=== PATIENT | female | born 1940 | race Caucasian/White ===

== ENCOUNTER → 2017-07-31 | Outpatient (CLI) | payer OTHER ==
[~2017-07-31] MED LIST: ALBU18002 INH; ATEN-175 PO; ATRINS NEB; ATV/2 PO; CYCL10TA6 PO; HYDR12.55 PO; LEVO50TA6 PO; LUTE15CA PO; NAPR-1169 PO; ONDA4TAB46 PO; POTASSIUM PO; RANI150T85 PO; TRAM-10 PO; flovent PO
--- NOTE | 2017-07-31 13:37 | Discharge Instructions ---
Discharge Instructions Procedure Procedure Date: Jul 31, 2017. Reason for visit: Matty Mamm/Repeat Us; Left/Core's Vs Stereo. Discharge Discharge Date: Jul 31, 2017. Discharge Diagnosis: status post breast biopsy Instructions Activity Recommendations: Additional Limitations (see below) Return to School/Work: no limitations Recommended Home Diet: No Limitations Provider Instructions: ACTIVITY RECOMMENDATIONS: * No lifting, pushing, pulling or exercising the affected side for three days. RETURN TO SCHOOL/WORK: * You may return to work/school after the procedure, but do not perform any strenuous activities for 24 to 48 hours. MEDICATIONS: * Tylenol (two 325 mg) every four to six hours if needed for mild pain (if not allergic to Tylenol). DIET: * Resume previous diet. SPECIAL CARE INSTRUCTIONS: * Keep biopsy site dry for 24 hours. May shower after 24 hours, but do not soak (bathe) incision. * May remove Tegaderm (plastic patch) tomorrow AFTER showering. * Leave the steri-strips on for one week. Allow the steri-strips to fall off by themselves. If not off after one week, you may remove them. You may place a Bandaid crosswise over the strips, if desired. * Apply ice 10 minutes on and 10 minutes off as needed. * Wear a bra at bedtime to sleep more comfortably for 2-3 days. * Your referring physician should have the results after approximately 5 to 7 business days. * Call for unusual bleeding, fever, drainage, etc or if you have any questions call during normal business hours or after hours call Dr Fam, . FOLLOW UP VISIT: Follow-up with Referring Physician as scheduled. Allergies Coded Allergies: Adhesives (Verified Allergy, Unknown, SKIN IRRIATION WITH SOME TAPE, 03/04) NO KNOWN DRUG ALLERGIES (Verified Allergy, Unknown, NONE, 03/04/17) Shellfish (Verified Allergy, Unknown, ABDOMINAL PAIN, 03/04/17) Jere Benitez Recommendations: Call your doctor if: * Temperature above 101 degrees * Pain not relieved by pain medicine ordered * There is increased drainage or redness from any incision * You have any unanswered questions or concerns. Your Doctors Instructions noted above were prepared by provider Emerald Fam. Patient Signature Section: Patient Instructions Signature Page Ginna Sandy Patient (or Guardian) Signature/Date: I have read and understand the instructions given to me by my caregivers. Caregiver/RN/Doctor Signature/Date: The above-named patient and/or guardian has received patient instructions on this date. + Original Patient Signature Page (only) stays with chart. Please make copy for patient.
--- NOTE | 2017-08-01 07:47 | MAMMOGRAPHY REPORT ---
ULTRASOUND GUIDED BIOPSY LEFT BREAST: 07/31/2017 CLINICAL HISTORY: Left 6:00 subareolar breast mass. PATIENT CONSENT: The procedure, risks and benefits were discussed with the patient and informed writt en consent was obtained. A timeout was performed immediately prior to the procedure. PROCEDURE DESCRIPTION: With ultrasound guidance, aseptic technique, and lidocaine as the local anesth etic (1% lidocaine to anesthetize the skin and 1% lidocaine with epinephrine to anesthetize the deepe r tissues), the mass of concern in the left 6:00 anterior subareolar breast (mass "A") was sampled 4 times with a 14-gauge Achieve biopsy needle. Immediately thereafter, with ultrasound guidance, asept ic technique, and lidocaine as the local anesthetic, a metallic localizer wing-shaped clip was placed centrally in the mass. Immediately thereafter, with ultrasound guidance, aseptic technique, and lidocaine as the local anest hetic (1% lidocaine to anesthetize the skin and 1% lidocaine with epinephrine to anesthetize the deep er tissues), the prominent ducts and associated calcifications and the left 6:00 breast, 2-3 cm from the nipple (labelled "B") were sampled approximately 8 times with a 14-gauge Achieve biopsy needle. Immediately thereafter, with ultrasound guidance, aseptic technique, and lidocaine as the local anest hetic, a metallic localizer clip was placed at the biopsy site. A specimen radiograph was performed of the samples, which shows at least one calcification to be present within the samples. Direct pressure was applied to the site immediately post procedure and hemostasis was achieved. Post procedure unilateral mammograms were performed to confirm clip placement. The patient tolerated the procedures without complication. She was given wound care instructions. The specimens were sent to p athology for analysis. COMPARISON: Comparison is made to exams dated: 07/11/2017 mammogram - [facility] and 018 mammogram - [facility]. 1. Ultrasound-guided core needle biopsy of the palpable mass in the left 6:00 anterior subareolar br east (mass "A"), with clip placement. 2. Ultrasound-guided core needle biopsy of prominent ducts and associated calcifications in the left 6:00 breast, 2-3 cm from the nipple (labeled site "B"), with clip placement. The patient will receive pathology results from her referring provider. IMPRESSION: ULTRASOUND GUIDED BIOPSY 1. Ultrasound-guided core needle biopsy of the palpable mass in the left 6:00 anterior subareolar br east (mass "A"), with clip placement. 2. Ultrasound-guided core needle biopsy of prominent ducts and associated calcifications in the left 6:00 breast, 2-3 cm from the nipple (labeled site "B"), with clip placement. The patient will receive pathology results from her referring provider. Emerald Fam M.D. ah/:07/31/2017 14:00:26 Appian Developer: Emelyn AMARAL)(Peter), [facility]
--- NOTE | 2017-08-01 07:47 | MAMMOGRAPHY REPORT ---
ULTRASOUND GUIDED BIOPSY LEFT BREAST: 07/31/2017 CLINICAL HISTORY: Palpable mass in the left 6:00 anterior subareolar breast as well as prominent duct s and associated calcifications seen more posteriorly. PATIENT CONSENT: The procedure, risks and benefits were discussed with the patient and informed writt en consent was obtained. A timeout was performed immediately prior to the procedure. PROCEDURE DESCRIPTION: With ultrasound guidance, aseptic technique, and lidocaine as the local anesth etic (1% lidocaine to anesthetize the skin and 1% lidocaine with epinephrine to anesthetize the deepe r tissues), the mass of concern in the left 6:00 anterior subareolar breast (mass "A") was sampled 4 times with a 14-gauge Achieve biopsy needle. Immediately thereafter, with ultrasound guidance, asept ic technique, and lidocaine as the local anesthetic, a metallic localizer clip was placed centrally i n the mass. Immediately thereafter, with ultrasound guidance, aseptic technique, and lidocaine as the local anest hetic (1% lidocaine to anesthetize the skin and 1% lidocaine with epinephrine to anesthetize the deep er tissues), the prominent ducts and associated calcifications and the left 6:00 breast, 2-3 cm from the nipple (labelled "B") were sampled approximately 8 times with a 14-gauge Achieve biopsy needle. Immediately thereafter, with ultrasound guidance, aseptic technique, and lidocaine as the local anest hetic, a metallic localizer clip was placed at the biopsy site. A specimen radiograph was performed of the samples, which shows at least one calcification to be present within the samples. Direct pressure was applied to the site immediately post procedure and hemostasis was achieved. Post procedure unilateral mammograms were performed to confirm clip placement. The patient tolerated the procedures without complication. She was given wound care instructions. The specimens were sent to p athology for analysis. COMPARISON: Comparison is made to exams dated: 07/11/2017 mammogram - [facility] and 018 mammogram - [facility]. IMPRESSION: ULTRASOUND GUIDED BIOPSY 1. Ultrasound-guided core needle biopsy of the palpable mass in the left 6:00 anterior subareolar br east (mass "A"), with clip placement. 2. Ultrasound-guided core needle biopsy of prominent ducts and associated calcifications in the left 6:00 breast, 2-3 cm from the nipple (labeled site "B"), with clip placement. The patient will receive pathology results from her referring provider. Emerald Fam M.D. ah/:07/31/2017 14:01:16 Media Production Manager: Emelyn AMARAL)(Peter), [facility]
--- NOTE | 2017-08-01 07:52 | MAMMOGRAPHY REPORT ---
BILATERAL DIGITAL DIAGNOSTIC MAMMOGRAM TOMOSYNTHESIS AND TARGETED LEFT ULTRASOUND: 07/31/2017 CLINICAL HISTORY: The patient reports a palpable lump in her left breast for approximately 1 month. She had an evaluation at an outside institution and a biopsy was recommended. TECHNIQUE: Breast tomosynthesis in addition to standard 2D mammography was performed. Bilateral CC and MLO tomosynthesis images including C views were obtained. COMPARISON: Comparison is made to exam dated: 07/11/2017 mammogram - [facility]. Also tasha or outside mammograms dated 09/10/2013, 05/02/2011, 04/20/2010. BREAST COMPOSITION: There are scattered areas of fibroglandular density in both breasts. FINDINGS: Bilateral CC and MLO tomosynthesis were obtained as the prior 2018 outside bilateral mammog shahzad were of 2D images only. There is a non-circumscribed irregular 15 x 8 mm mass within the left a nterior inferior subareolar breast. Posterior to this is an ill-defined focal asymmetry and associat ed pleomorphic calcifications extending in a ductal distribution, with total extent of the abnormalit y measuring approximately 10.3 x 3.8 cm. The remainder of the left breast as well as right breast de monstrate no suspicious masses, calcifications, or areas of architectural distortion. A biopsy clip is again noted within the left upper outer breast from prior benign biopsy. Targeted ultrasound was performed of the palpable left breast lump pointed out by the patient. In th e left breast at 6:00 subareolar region, there is an irregular hypoechoic solid non-circumscribed mas s which measures 1.3 x 1.0 x 1.0 cm. This corresponds with the anterior mammographic mass and is hig hly suspicious for malignancy. Ultrasound-guided biopsy is recommended for further evaluation. Post erior and slightly inferior to the mass, in the left breast at approximately 6:00, 2-3 cm from the ni pple, there are prominent ducts with a few echogenic foci seen within the ducts which correspond with the pleomorphic calcifications seen mammographically. 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 Targeted ultrasound was also performed of the left axilla. There are a few left axillary lymph nodes which have normal echogenic fatty alexia and the cortical thicknesses are within normal limits. The m ost prominent lymph node in the lower left axilla has a cortical thickness of 2.7 mm which is at the upper limits of normal, however, this lymph node appears stable mammographically compared to prior ex ams including the 2011 exam. No clear adenopathy is evident. Postprocedural left CC and ML tomosynthesis images were obtained after the biopsies. A new wing-shap ed biopsy marker clip is seen within the biopsied mass in the left anterior 6:00 subareolar breast. A ribbon-shaped biopsy marker clip is seen more posteriorly in the left central breast at the site of the biopsy of prominent ducts and associated calcifications. The 2 clips are located approximately 3.8 cm apart. No significant postbiopsy hematoma is seen. IMPRESSION: ACR BI-RADS CATEGORY 5: HIGHLY SUGGESTIVE OF MALIGNANCY, TARGETED ULTRASOUND ACR BI-RADS CATEGORY 5: HIGHLY SUGGESTIVE OF MALIGNANCY 1. Palpable hypoechoic 1.3 cm mass in the left 6:00 subareolar breast, as well as a focal asymmetry and associated pleomorphic calcifications seen extending posterior to the mass. The total extent of the abnormality measures up to 10.3 cm. Findings are highly suspicious and ultrasound-guided core ne edle biopsy 2 is recommended, of the palpable mass as well as prominent ducts and associated calcifi cations more posteriorly. 2. No mammographic evidence of malignancy in the right breast on the tomosynthesis images. 3. No clear evidence of left axillary adenopathy. 4. Postprocedural mammograms show two new biopsy marker clips status post ultrasound-guided biopsy 2 of the left breast. The results were reviewed with the patient. The biopsies were performed immediately after the exam. Approximately 10% of breast cancers are not detected with mammography. A negative mammographic report should not delay biopsy if a clinically suggestive mass is present. Emerald Fam M.D. /:07/31/2017 14:03:47 Care Clinician: Emelyn AMARAL)(Peter), [facility] BI-RADS Code: ACR BI-RADS Category 5: Highly Suggestive Of Malignancy Ultrasound BI-RADS: ACR BI-RAD S Category 5: Highly Suggestive Of Malignancy
== END | disposition home or self-care (01) ==
LOC: C.MAMM 12:17
PROVIDERS: ATTEND Family Medicine
DX: N63.20 Unspecified lump in the left breast, unspecified quadrant (principal); C50.912 Malignant neoplasm of unspecified site of left female breast; R92.0 Mammographic microcalcification found on diagnostic imaging of breast

== ENCOUNTER 2019-03-28 20:10 | Inpatient (IN) ==
[2019-03-28] MEDS ORDERED: NITROGLYCERIN SL 0.4 MG/TAB TAB SL PRN (21:21)
[2019-03-28] MEDS ORDERED: ACETAMINOPHEN 325 MG TAB PO PRN (21:21)
--- NOTE | 2019-03-28 21:46 | XRay Report ---
SINGLE VIEW CHEST CLINICAL HISTORY: Atrial fibrillation. FINDINGS: An AP, portable, upright chest radiograph is compared to study dated 02/18/2017. The examin ation is degraded by portable technique and apical lordotic positioning. The heart is enlarged noting atherosclerotic calcification of the thoracic aorta. The pulmonary vasculature is noncongested. 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 An accessory azygous fissure is incidentally note d. No airspace consolidation or pleural effusion is identified. No pneumothorax is seen. The skeletal structures are osteopenic. The bony thorax is grossly intact. A compression deformity with vertebrop lasty change is noted in the lower thoracic spinal. The carotid bulbs are densely calcified. IMPRESSION: Cardiomegaly with no acute cardiopulmonary abnormality. Electronically signed by: Tonny Hawkins M.D. 03/28/2019 9:45 PM
[2019-03-28] MEDS ORDERED: METOPROLOL TARTRATE 25 MG TAB PO STA (22:01)
[2019-03-28] MEDS ORDERED: NICOTINE POLACRILEX 2 MG GUM MT PRN (22:02)
[2019-03-28] MEDS ORDERED: TAMSULOSIN HCL 0.4 MG CAP PO ONE (22:07)
[2019-03-28] MEDS ORDERED: SODIUM CHLORIDE 0.9% 500 ML IV ONE (22:09)
[2019-03-28] MEDS ORDERED: Heparin IV Low Dose *NO* Bolus IV STA (22:10)
[2019-03-28] MEDS ORDERED: LORazepam 1 MG TAB PO PRN (22:10)
[2019-03-28] MEDS ORDERED: OXYCODONE HCL IR 5 MG TAB (IMMEDIATE RELEASE) PO PRN (22:11)
[2019-03-28] MEDS ORDERED: HYDROmorphone INJ 0.5 MG/0.5 ML SYR IV PRN (22:11)
--- NOTE | 2019-03-28 22:17 | History & Physical Report ---
Date of Service March 28, 2019 Assessment & Plan (1) Atrial fibrillation with rapid ventricular response: New onset Likely secondary to discomfort from obstructive uropathy No sepsis for now hypertension, currently stable breast cancer left status post surgery radiation on hormonal Rx Seroma not a new finding as per patient. Patient follows with [facility] Hyponatremia secondary to clinical dehydration, poor p.o. intake uterine cancer status post surgery chronic thrombocytopenia Hypothyroidism, euthyroid as of recent TSH hyperglycemia ro DM ongoing tobacco abuse PCU Switch patient's Atenolol to Lopressor to allow for higher dosing to achieve rate control IV heparin for thromboembolic prophylaxis TTE, Cardiology consult new onset A. fib IVF, careful correction of sodium, hyponatremia work-up Flomax trial Urology consult Re: Obstructive uropathy check hemoglobin A1c Nicotine gum as needed DVT prophylaxis. IV heparin Full code History of Present Illness Chief Complaint: Left kidney stone Primary Care Provider: Carson Aguilar MD History obtained from patient and records. Medical history significant for hypertension, breast cancer left status post surgery radiation, uterine cancer status post surgery, hypothyroidism, chronic thrombocytopenia, ongoing tobacco abuse. Recent confinement February 2017 under Orthopedics service for elective kyphoplasty for T12 compression fracture. 5 days history of fatigue symptoms, poor appetite, left-sided abdominal discomfort. No chest pain, no S OB. Patient brought to [facility] this afternoon. Noted to be in rapid A. fib, cardiac rate 140s. SBP 90s RR 24 Patient given IV Lopressor at the ER. CT abdomen pelvis showed 6 mm proximal left ureteral calculus causing moderate left hydronephrosis Incidental finding of 5.5 cm collection left breast favoring seroma. Consider abscess in the right clinical setting. 03/28 [place] [facility] labwork as follows : Hemoglobin 13.9 hematocrit 40 WBC 8 platelets 96 sodium 128 potassium 4.4 chloride 91 CO2 22 BUN 17 creatinine 1.2 glucose 108 UA WBC esterase positive, nitrite negative. Patient given IV Ceftriaxone at the ER. Patient transferred to [facility] for urologic services. 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 Allergies Allergy/AdvReac Type Severity Reaction Status Date / Time adhesive Allergy Unknown SKIN Verified 03/04/17 09:58 IRRIATION WITH SOME TAPE No Known Drug Allergies Allergy Unknown NONE Verified 03/04/17 09:58 shellfish derived Allergy Unknown ABDOMINAL Verified 03/04/17 09:58 PAIN Home Medications Home Medications Medication Instructions Recorded Confirmed Type Potassium Tab 99 mg PO DAILY 03/28/19 03/28/19 History albuterol sulfate [ProAir HFA] 2 puff INHALATION Q4 PRN 03/28/19 03/28/19 History anastrozole [Arimidex] 1 mg PO DAILY 03/28/19 03/28/19 History atenolol [Tenormin] 100 mg PO DAILY 03/28/19 03/28/19 History benzonatate [Tessalon Perles] 200 mg PO TID PRN 03/28/19 03/28/19 History bupropion HCl (smoking deter) 150 mg PO BID 03/28/19 03/28/19 History fluticasone furoate [Arnuity 1 inh INHALATION DAILY 03/28/19 03/28/19 History Ellipta] ipratropium-albuterol 3 ml INHALATION Q6 PRN 03/28/19 03/28/19 History levothyroxine 50 mcg PO DAILY 03/28/19 03/28/19 History lorazepam [Ativan] 1 mg PO BID PRN 03/28/19 03/28/19 History naproxen [Naprosyn] 500 mg PO Q12 PRN 03/28/19 03/28/19 History ranitidine HCl [Zantac] 150 mg PO BID 03/28/19 03/28/19 History Past Med/Surg History Medical History Acute UTI Breast cancer, left Cancer, uterine Cataract of both eyes Left ureteral stone Surgical History History of hysterectomy for cancer Previous back surgery Social History Preferred Language: Kazakh Communication Ability: Effective 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: No Beliefs That Will Affect Care: None Current Living Situation: Alone Current Living Situation Comment: house Other Information That Helps Us Care for You: No Feels Safe at Home: Yes Safety Concerns: Feels Safe At This Time Smoking Status: Current every day smoker Tobacco Type: cigarettes ; Cigarettes Per Day: 1/2 pack-10 cigaretts per day ; Do You Dip or Chew Tobacco: No ; Second Hand Exposure: No ; Tobacco Cessation Education Requested by Patient: No Hx Alcohol Use: Yes Alcohol type: other Hx Substance Use: No Review of Systems Review of Systems: As per HPI, all 10 systems reviewed, all other ROS negative Physical Exam Physical Exam: GENERAL: Slightly uncomfortable, lying on the right lateral decubitus position, no respiratory distress, obese SKIN: Normal color, warm HEENT: [place] palpebral conjunctivae, no ptosis, dry buccal mucosa NECK : Supple, no tenderness CHEST : Decreased breath sounds , no tenderness HEART : Tachycardic, irregular , no obvious murmurs ABDOMEN: Some distention, nontender EXTREMITIES : No LE swelling/tenderness, no other conspicuous deformities noted NEUROLOGIC : Coherent, no facial asymmetry, no other gross focality Results & Data Vital Signs (Past 12 Hours) Vital Signs Temp Pulse Resp BP Pulse Ox Pulse Ox 03/28/19 21:22 37.1 C 110 H 20 131/84 95 95 Laboratory Results [facility] lab results as per HPI Diagnostic Findings Chest x-ray : Cardiomegaly with no acute cardiopulmonary abnormality. EKG as per my interpretation : Rate 130, A. fib, LAD, LAFB, no ischemia CT abdomen pelvis as per HPI Code Status & VTE Plan VTE Prophylaxis Plan VTE Prophylaxis will be ordered: Yes
[2019-03-28 23:12] LABS: BUN Creatinine Ratio 15.8 (10-20); Calcium 8.7 mg/dl (8.5-10.1); Creatinine Clr Calc Pharmacy 32.9 ml/min; Est GFR (African American) 43.9; Est GFR (Non-African American) 37.9; Magnesium 1.6 mg/dl (1.8-2.4); Potassium 3.6 mmol/L (3.5-5.1)
[2019-03-28 23:22] LABS: Thyroid Stimulating Hormone 1.41 uIu/ml (0.300-4.500); Troponin I 0.031 ng/ml (0-0.045)
[2019-03-28] MEDS ORDERED: POTASSIUM CHLORIDE 20 MEQ TABCR PO STA (23:27)
[2019-03-28] MEDS ORDERED: ACETAMINOPHEN 325 MG TAB PO STA (23:27)
[2019-03-28] MEDS ORDERED: CEFEPIME 2,000 MG/20 ML VIAL IV STA (23:34)
[2019-03-28] MEDS ORDERED: LACTATED RINGER'S 1,000 ML IV SCH (23:45)
[2019-03-28] MEDS ORDERED: CEFEPIME CONSULT ACTIVE PRN (23:47)
[2019-03-28 23:49] LABS: Partial Thromboplastin Ratio 1.2; Partial Thromboplastin Time 32.8 Seconds (21.0-31.0)
--- NOTE | 2019-03-28 23:52 | Hospitalist Progress Note ---
Date of Service March 28, 2019 Subjective Patient noted to be febrile and tachycardic in a.m. UA WBC esterase, nitrite positive AP Sepsis secondary to complicated UTI Cultures, check lactic acid IV Cefepime for now (hx Pseudomonas UTI as per outpatient records) N.p.o. sips after midnight in anticipation of urgent urologic procedure. Results & Data Vital Signs (Past 12 Hours) Vital Signs Temp Pulse Resp BP BP Pulse Ox Pulse Ox 03/28/19 23:06 37.8 C H 115 H 16 137/83 96 03/28/19 21:22 37.1 C 110 H 20 131/84 95 95
[2019-03-28] MEDS: HEPARIN SODIUM/DEXTROSE 25,000 UNITS/500 ML BAG IV SCH (23:54)
[2019-03-29] MEDS ORDERED: LACTATED RINGER'S 1,000 ML IV ONE
[2019-03-29] MEDS: MAGNESIUM SULFATE / D5W 1 GM/100 ML BAG IV SCH ×2 (00:04→01:07)
[2019-03-29] MEDS: CEFEPIME 2,000 MG in SYRINGE 7.5 ML IV SCH ×2 (00:05→22:18)
[2019-03-29 01:37] LABS: Appearance Urine Turbid (Clear); Bacteria Urine Automated Negative (Negative); Blood Urine 3+ (Negative); Color Urine Dark Yellow; Epithelial Cell Urine Auto 20-30 /lpf (0-5); Glucose Urine UA Negative (Negative); Ketones Urine Negative (Negative); Leukocyte Esterase Urine 2+ (Negative); Nitrite Urine Positive (Negative); Protein Urine 2+ (Negative); Specific Gravity Urine 1.019 (1.000-1.030); Urobilinogen Urine Negative (Negative); WBC Urine Automated >30 /hpf (0-5)
[2019-03-29 01:40] LABS: Bilirubin Urine Negative (Negative); Ictotest Urine Negative (Negative)
[2019-03-29 01:51] LABS: RBC Urine Automated 0-4 /hpf (0-4)
[2019-03-29 02:48] LABS: BUN Creatinine Ratio 16.7 (10-20); Calcium 8.3 mg/dl (8.5-10.1); Creatinine Clr Calc Pharmacy 35.3 ml/min; Est GFR (African American) 47.7; Est GFR (Non-African American) 41.2; Magnesium 2.6 mg/dl (1.8-2.4)
[2019-03-29] MEDS: NSS + 20MEQ KCL 20 MEQ/1,000 ML BAG IV SCH ×2 (04:12→22:18)
[2019-03-29] MEDS ORDERED: SODIUM CHLORIDE 0.9% 500 ML IV ONE ×2 (05:08→07:13)
[2019-03-29] MEDS ORDERED: METOPROLOL TARTRATE 1 MG/ML VIAL IV STA (05:08)
[2019-03-29] MEDS ORDERED: ACETAMINOPHEN 325 MG TAB PO STA (05:08)
[2019-03-29] MEDS: LEVOTHYROXINE SODIUM 50 MCG TABLET PO SCH (05:15)
[2019-03-29] MEDS ORDERED: NSS + 20MEQ KCL 20 MEQ/1,000 ML BAG IV SCH (06:00)
[2019-03-29] MEDS: PROMETHAZINE HCL 12.5 MG in SODIUM CHLORIDE 0.9% 50 ML IV PRN (06:34)
[2019-03-29 06:44] LABS: Partial Thromboplastin Ratio 1.5; Partial Thromboplastin Time 39.3 Seconds (21.0-31.0)
[2019-03-29] MEDS ORDERED: HEPARIN IV BOLUS 4,000 UNITS in SYRINGE 0 ML IV ONE (07:30)
[2019-03-29] MEDS ORDERED: DIGOXIN 250 MCG in SYRINGE 9 ML IV ONE (08:00)
[2019-03-29] MEDS ORDERED: INFLUENZA VACCINE HIGH DOSE 65+ 0.5 ML SYR IM ONE (08:00)
[2019-03-29] MEDS ORDERED: INFLUENZA ADMINISTRATION CHARGE ONE (08:00)
--- NOTE | 2019-03-29 08:28 | Anesthesiology Consultation ---
Date of Service March 29, 2019 Assessment & Plan (1) Encounter for pre-operative examination: ASA ASA3 Proposed Anesthesia Anesthesia Type: MAC History Height/Weight Height: 5 ft 2 in Weight: 77.4 kg Allergies Allergy/AdvReac Type Severity Reaction Status Date / Time adhesive Allergy Unknown SKIN Verified 03/04/17 09:58 IRRIATION WITH SOME TAPE No Known Drug Allergies Allergy Unknown NONE Verified 03/04/17 09:58 shellfish derived Allergy Unknown ABDOMINAL Verified 03/04/17 09:58 PAIN Medications Home Medications Medication Instructions Recorded Confirmed Last Taken Potassium Tab 99 mg PO DAILY 03/28/19 03/28/19 Unknown albuterol sulfate [ProAir HFA] 2 puff INHALATION Q4 PRN 03/28/19 03/28/19 Unknown anastrozole [Arimidex] 1 mg PO DAILY 03/28/19 03/28/19 Unknown atenolol [Tenormin] 100 mg PO DAILY 03/28/19 03/28/19 Unknown benzonatate [Tessalon Perles] 200 mg PO TID PRN 03/28/19 03/28/19 Unknown bupropion HCl (smoking deter) 150 mg PO BID 03/28/19 03/28/19 Unknown fluticasone furoate [Arnuity 1 inh INHALATION DAILY 03/28/19 03/28/19 Unknown Ellipta] ipratropium-albuterol 3 ml INHALATION Q6 PRN 03/28/19 03/28/19 Unknown levothyroxine 50 mcg PO DAILY 03/28/19 03/28/19 Unknown lorazepam [Ativan] 1 mg PO BID PRN 03/28/19 03/28/19 Unknown naproxen [Naprosyn] 500 mg PO Q12 PRN 03/28/19 03/28/19 Unknown ranitidine HCl [Zantac] 150 mg PO BID 03/28/19 03/28/19 Unknown Active Medications Generic Name Dose Route Start Last Admin Trade Name Freq PRN Reason Stop Dose Admin Promethazine HCl 12.5 mg/ 50.5 mls @ 202 mls/hr 03/28/19 22:11 03/29/19 06:54 Sodium Chloride IV 04/27/19 22:10 Infused Q6H PRN Infusion Nausea And Vomiting Heparin Sodium/Dextrose 25,000 units in 500 mls @ 16 mls/hr 03/28/19 23:15 03/29/19 07:06 Heparin Sodium/Dextrose IV 04/27/19 23:14 800 units/hr .Q24H JAMILAH 16 mls/hr Titration Protocol 800 UNITS/HR Cefepime HCl 2,000 mg/ Syringe 20 mls @ 5 mls/min 03/28/19 23:45 03/29/19 00:05 IV 04/07/19 23:44 5 mls/min Q24H JAMILAH Administration Protocol Potassium Chloride/Sodium Chloride 20 meq in 1,000 mls @ 80 mls/hr 03/29/19 04:30 03/29/19 06:15 Normal Saline W/20 Meq Kcl IV 04/28/19 04:29 80 mls/hr .[id number] JAMILAH Infusion Levothyroxine Sodium 50 mcg 03/29/19 06:30 03/29/19 05:15 Synthroid PO 04/28/19 06:29 50 mcg DAILYBB JAMILAH Administration Miscellaneous 1 ea 03/28/19 22:30 03/29/19 00:05 Order Awaiting Action N/A 04/27/19 22:29 Not Given QS JAMILAH Past Medical History Medical History Breast cancer, left Cancer, uterine Cataract of both eyes Past Surgical History Surgical History History of hysterectomy for cancer Previous back surgery Social History Smoking Status: Current every day smoker tobacco type: cigarettes Smoking cigarettes per day: 1/2 pack-10 cigaretts per day Do You Dip or Chew Tobacco: No Hx Alcohol Use: Yes Alcohol type: other alcohol intake frequency: holidays/special occasions only Hx Substance Use: No Physical Exam Vital Signs Last Vital Signs Temp 37.3 C 03/29/19 07:50 Pulse 129 H 03/29/19 07:52 Resp 20 03/29/19 07:50 BP 98/65 L 03/29/19 07:50 Pulse Ox 93 03/29/19 07:50 Testing Laboratory Results 03/29/19 06:00 APTT 39.3 Seconds (21.0-31.0) H 03/29/19 06:00 Urine Color Dark Yellow 03/29/19 00:30 Urine Appearance Turbid (Clear) A 03/29/19 00:30 Urine pH 5.0 (4.5-7.5) 03/29/19 00:30 Ur Specific [place] 1.019 (1.000-1.030) 03/29/19 00:30 Urine Protein 2+ (Negative) H 03/29/19 00:30 Urine Glucose (UA) Negative (Negative) 03/29/19 00:30 Urine Ketones Negative (Negative) 03/29/19 00:30 Urine Nitrite Positive (Negative) A 03/29/19 00:30 Ur Leukocyte Esterase 2+ (Negative) H 03/29/19 00:30 Urine WBC (Auto) >30 /hpf (0-5) H 03/29/19 00:30 Urine RBC (Auto) 0-4 /hpf (0-4) 03/29/19 00:30 U Hyaline Cast (Auto) 5-10 /lpf (0-5) H 03/29/19 00:30 U Epithel Cells (Auto) 20-30 /lpf (0-5) H 03/29/19 00:30 Urine Bacteria (Auto) Negative (Negative) 03/29/19 00:30 Chest X-Ray Date: 03/28/19 Cardiomegaly with no acute cardiopulmonary abnormality. Other Testing Laboratory Tests 02/18/17 03/29/19 03/29/19 15:15 02:10 06:00 WBC 7.04 Hgb 14.6 Plt Count 162 APTT 39.3 H Sodium Potassium 4.0 BUN 21 H Creatinine 1.25 H Glucose 131 H 03/29/19 06:00 WBC Hgb Plt Count APTT Sodium 132 L Potassium BUN Creatinine Glucose
[2019-03-29] MEDS ORDERED: METOPROLOL TARTRATE 1 MG/ML VIAL IV PRN (08:41)
[2019-03-29] MEDS ORDERED: METOPROLOL TARTRATE 50 MG TAB PO SCH (09:00)
[2019-03-29] MEDS ORDERED: ePHEDrine sulfate 50 MG/ML AMP IV PRN (09:03)
[2019-03-29] MEDS ORDERED: ONDANSETRON INJ 2 MG/ML 2 ML VIAL IV PRN (09:03)
[2019-03-29] MEDS ORDERED: HYDROmorphone INJ 1 MG/ML SYRINGE IV PRN (09:03)
[2019-03-29] MEDS ORDERED: ATROPINE SULFATE 0.1 MG/ML 10ML SYR IV PRN (09:03)
[2019-03-29] MEDS ORDERED: fentaNYL citrate 100 MCG/2 ML VIAL IV PRN (09:03)
[2019-03-29] MEDS ORDERED: fentaNYL citrate 100 MCG/2 ML VIAL ONE (09:05)
[2019-03-29] MEDS ORDERED: PROPOFOL IV EMULSION 10 MG/ML 20 ML VIAL IV ONE (09:09)
[2019-03-29] MEDS ORDERED: LIDOCAINE HCL 2% 2 ML VIAL/AMP(20MG/ML) INFIL ONE (09:09)
[2019-03-29] MEDS ORDERED: IOTHALAMATE MEGLUMINE II 17.2% 250 ML VIAL ONE (09:19)
--- NOTE | 2019-03-29 09:20 | Urology Consultation ---
Date of Consultation March 29, 2019 Assessment & Plan (1) Left ureteral stone: A/P 78 yo female with afib with rapid ventricular response, L ureteral stone and possible UTI. Will proceed to OR for cystoscopy, left retrograde pyelography and stent placement to eliminate ongoing obstructive, infected uropathy as a contributor to her clinical deterioration from baseline. Will add Cipro to coverage perioperatively. Consent obtained from patient preoperatively today, risks and benefits reviewed. Will need future definitive stone management. Patient vocalizes good understanding of the treatment plan. OR urgently. Present on Admission?: Yes (2) Acute UTI: History of Present Illness Reason for Consultation: Left proximal ureteral stone with UTI and possible sepsis. Attending Physician: Ronaldo Henderson MD History of Present Illness 78 yo female, admitted last PM, transferred from [facility] due to atrial fibrillation with rapid ventricular response. She was also noted to have a left proximal ureteral stone on CT imaging felt to possibly be related to the above. She was transferred locally for further management, felt to possibly have UTI and then febrile this AM. Patient's urology consult noted incidentally on checking service list in AM. Current vitals noted to be hypertensive and tachycardic, patient NPO for possible L renal decompression this AM. Covered with Cefriaxone per note in ER. Care d/w hospitalist - stone on left, CT report in chart, disc physically available, neither scanned in or available digitally. to see patient for above, consult noted in chart. Patient reports her symptoms started with nausea, headache, no emesis a couple of days ago associated with mild confusion. She denies chest pain, abdominal pain or flank pain. She denies prior history of stone disease, notes her first UTI was two months ago. She denies prior history or evaluation. Allergies Allergy/AdvReac Type Severity Reaction Status Date / Time adhesive Allergy Unknown SKIN Verified 03/04/17 09:58 IRRIATION WITH SOME TAPE No Known Drug Allergies Allergy Unknown NONE Verified 03/04/17 09:58 shellfish derived Allergy Unknown ABDOMINAL Verified 03/04/17 09:58 PAIN Home Medications Home Medications Medication Instructions Recorded Confirmed Type Potassium Tab 99 mg PO DAILY 03/28/19 03/28/19 History albuterol sulfate [ProAir HFA] 2 puff INHALATION Q4 PRN 03/28/19 03/28/19 History anastrozole [Arimidex] 1 mg PO DAILY 03/28/19 03/28/19 History atenolol [Tenormin] 100 mg PO DAILY 03/28/19 03/28/19 History benzonatate [Tessalon Perles] 200 mg PO TID PRN 03/28/19 03/28/19 History bupropion HCl (smoking deter) 150 mg PO BID 03/28/19 03/28/19 History fluticasone furoate [Arnuity 1 inh INHALATION DAILY 03/28/19 03/28/19 History Ellipta] ipratropium-albuterol 3 ml INHALATION Q6 PRN 03/28/19 03/28/19 History levothyroxine 50 mcg PO DAILY 03/28/19 03/28/19 History lorazepam [Ativan] 1 mg PO BID PRN 03/28/19 03/28/19 History naproxen [Naprosyn] 500 mg PO Q12 PRN 03/28/19 03/28/19 History ranitidine HCl [Zantac] 150 mg PO BID 03/28/19 03/28/19 History Patient History Medical History (Updated 03/29/19 @ 09:18 by Gerald Stiles MD) Acute UTI Breast cancer, left Cancer, uterine Cataract of both eyes Left ureteral stone Surgical History History of hysterectomy for cancer Previous back surgery Social History Preferred Language: [place] Communication Ability: Effective Shank Paperer Required: No Beliefs That Will Affect Care: None Current Living Situation: Alone Current Living Situation Comment: house Other Information That Helps Us Care for You: No Feels Safe at Home: Yes Safety Concerns: Feels Safe At This Time Smoking Status: Current every day smoker Tobacco Type: cigarettes ; Cigarettes Per Day: 1/2 pack-10 cigaretts per day ; Do You Dip or Chew Tobacco: No ; Second Hand Exposure: No ; Tobacco Cessation Education Requested by Patient: No Hx Alcohol Use: Yes Alcohol type: other Hx Substance Use: No Review of Systems Constitutional: + fever; no chills Eyes: no diplopia Ear, Nose, Mouth, Throat: no ear pain and no ear trauma Respiratory: no hemoptysis Cardiovascular: no chest pain Gastrointestinal: + nausea; no abdominal pain and no vomiting Genitourinary: no flank pain Integumentary: no acne and no boil Neurologic: no paralysis Psychiatric: no hopelessness Hematologic / Lymphatic: no easy bleeding Allergy / Immunological: no tongue swelling Physical Exam Constitutional: + obese; no acute distress Eyes: eyes not dysmorphic ENMT: Ears: no external ear abnormality Neck: trachea midline; no anterior neck swelling Respiratory: no respiratory distress and does not use accessory muscles Cardiovascular: Vessels: radial pulses present Gastrointestinal (Abdomen): Inspection/Auscultation: abdomen not distended Percussion/Palpation: abdomen soft; abdomen nontender Musculoskeletal: Head/Neck/Chest: normocephalic and neck supple Skin: normal turgor Neurologic: awake; not obtunded Psychiatric: Orientation: oriented x 3 Lymphatic: no lymphadenopathy Results & Data Vital Signs (Past 12 Hours) Vital Signs Temp Pulse Pulse Resp BP BP BP 03/29/19 08:47 37.2 C 99 H 24 141/79 H 03/29/19 07:52 129 H 03/29/19 07:50 37.3 C 129 H 20 98/65 L 03/29/19 07:06 37.2 C 132 H 16 94/63 L 03/29/19 05:14 144 H 137/95 03/29/19 05:08 137/95 03/29/19 03:06 37.8 C H 99 H 16 111/73 03/28/19 23:06 37.8 C H 115 H 16 137/83 03/28/19 21:22 37.1 C 110 H 20 131/84 Pulse Ox Pulse Ox 03/29/19 08:47 96 03/29/19 07:52 03/29/19 07:50 93 03/29/19 07:06 93 03/29/19 05:14 03/29/19 05:08 03/29/19 03:06 94 03/28/19 23:06 96 03/28/19 21:22 95 95 Laboratory Results Laboratory Results - last 48 hr 03/28/19 03/28/19 03/28/19 22:45 22:45 23:17 APTT 32.8 H PTT Ratio 1.2 Sodium 131 L Potassium 3.6 Chloride 98 Carbon Dioxide 27 Anion Gap 7.0 BUN 21 H Creatinine 1.34 H Est Cr Clr Drug Dosing 32.9 Est GFR ( Amer) 43.9 Est GFR (Non-Af Amer) 37.9 BUN/Creatinine Ratio 15.8 Glucose 100 H Osmolality 276 L Lactate Calcium 8.7 Magnesium 1.6 L Troponin I 0.031 TSH 1.410 Urine Color Urine Appearance Urine pH Ur Specific [place] Urine Protein Urine Glucose (UA) Urine Ketones Urine Blood Urine Nitrite Urine Bilirubin Urine Urobilinogen Ur Leukocyte Esterase Urine WBC (Auto) Urine RBC (Auto) U Hyaline Cast (Auto) U Epithel Cells (Auto) Urine Bacteria (Auto) Urine Yeast Urine Osmolality 03/29/19 03/29/19 03/29/19 00:30 00:30 02:10 APTT PTT Ratio Sodium 130 L Potassium 4.0 Chloride 99 Carbon Dioxide 27 Anion Gap 4.0 BUN 21 H Creatinine 1.25 H Est Cr Clr Drug Dosing 35.3 Est GFR ( Amer) 47.7 Est GFR (Non-Af Amer) 41.2 BUN/Creatinine Ratio 16.7 Glucose 131 H Osmolality Lactate Calcium 8.3 L Magnesium 2.6 H Troponin I TSH Urine Color Dark Yellow Urine Appearance Turbid A Urine pH 5.0 Ur Specific [place] 1.019 Urine Protein 2+ H Urine Glucose (UA) Negative Urine Ketones Negative Urine Blood 3+ H Urine Nitrite Positive A Urine Bilirubin Negative Urine Urobilinogen Negative Ur Leukocyte Esterase 2+ H Urine WBC (Auto) >30 H Urine RBC (Auto) 0-4 U Hyaline Cast (Auto) 5-10 H U Epithel Cells (Auto) 20-30 H Urine Bacteria (Auto) Negative Urine Yeast Not Reportable Urine Osmolality 471 L 03/29/19 03/29/19 03/29/19 02:10 06:00 06:00 APTT 39.3 H PTT Ratio 1.5 Sodium 132 L Potassium Chloride Carbon Dioxide Anion Gap BUN Creatinine Est Cr Clr Drug Dosing Est GFR ( Amer) Est GFR (Non-Af Amer) BUN/Creatinine Ratio Glucose Osmolality Lactate 1.3 Calcium Magnesium Troponin I TSH Urine Color Urine Appearance Urine pH Ur Specific [place] Urine Protein Urine Glucose (UA) Urine Ketones Urine Blood Urine Nitrite Urine Bilirubin Urine Urobilinogen Ur Leukocyte Esterase Urine WBC (Auto) Urine RBC (Auto) U Hyaline Cast (Auto) U Epithel Cells (Auto) Urine Bacteria (Auto) Urine Yeast Urine Osmolality PG Care Time/CCT Total # of Minutes Spent Total Time Spent with Patient: Total time spent is greater than 50% in coordination of care (as documented) at patient's floor/unit and/or counseling patient:
[2019-03-29] MEDS ORDERED: CIPROFLOXACIN 400 MG/200 ML BAG IV SCH (10:00)
[2019-03-29] MEDS ORDERED: DEXAMETHASONE SOD INJ 4 MG/ML VIAL ONE (10:01)
[2019-03-29] MEDS ORDERED: ONDANSETRON INJ 2 MG/ML 2 ML VIAL ONE (10:01)
--- NOTE | 2019-03-29 10:15 | Operative Report ---
PG Post Operative Report Pre & Post Diagnosis Operation Date: 03/29/19 10:00 Pre-Op Diagnosis: Left Ureteral stone, suspected urinary tract infection Post-Op Diagnosis: Left Ureteral stone, suspected urinary tract infection Procedure: Cystoscopy, left retrograde pyelography, left ureteral stent insertion. Surgeon: Dr. Gerald Stiles Anesthesia: Monitored anesthesia care with sedation. EBL: 0 Findings: Mild to moderate hydronephrosis on the left-hand side with good stent position after completion of case. Specimen sent pathology: Bladder urine for culture and sensitivity after placement of stent. Drains left in place: Left-sided 6 Prydeinig multilength ureteral stent I identified the patient and participated in the time-out.: Yes Procedure Operation Date: 03/29/19 10:00 Actual Procedures p Cystoscopy, Left Retrograde Pyelography, Left Ureteral Stent Insertion(Left) - Gerald Stiles MD Brief history: Patient is a 78-year-old female admitted last night for atrial fibrillation with rapid ventricular response, 6 mm left proximal ureteral stone. Images have now been scanned into the system and are personally reviewed. Report is also noted in the chart. UTI was felt to be present and patient was febrile this morning. Due to concern over the possibility of obstructive uropathy and UTI with the risk of urosepsis she is being brought to the operating room n.p.o. for left ureteral stent placement. Please see urology consultation for further details. Ciprofloxacin is provided for additional antibiotic coverage above baseline and SCDs were used for DVT prophylaxis intraoperatively. Procedure: Patient was properly identified and brought into the operative suite after identification of appropriate consent in the chart. Monitored anesthesia care with sedation was initiated and patient was prepped and draped in standard fashion for this procedure. Full timeout procedure was followed. 22 Prydeinig rigid cystoscope was passed into the bladder under direct visualization were mildly cloudy urine with mild bladder inflammation was appreciated. No intravesical tumors, papillary lesions or masses were noted. Ureteral orifices were appreciated in the left-sided ureteral orifice was noted to be somewhat lateral to the normal anatomic location but effluxing clear urine. This was cannulated using an open-ended catheter and retrograde pyelography was performed. This demonstrated no clear filling defects within the ureter with mild to moderate proximal hydroureteronephrosis and some tortuosity of the ureter at the level of the ureteropelvic junction. Sensor tip wire was advanced up to the level of the left kidney with some resistance at this area consistent with the patient's stone noted on CT imaging. This was followed with a 6 Prydeinig multilength ureteral stent which was noted to have a full coil present within the upper pole of the kidney and redundant coils within the bladder. Hydronephrotic drip of mildly cloudy urine was appreciated and a urine aliquot was taken for culture and sensitivity after drainage of the left kidney. Bladder was drained and cystoscope was removed. Anesthesia was reversed and patient was transferred to recovery room in stable condition. Follow-up CARE: Patient will be readmitted to the floor to the primary service. Further management per their determination. Will require definitive outpatient management for stone. Surgeon Gerald Stiles MD Outside Laborer None Estimated Blood Loss 0 Findings Consistent with Post-Op Diagnosis Specimens See above Description of Procedure See above I attest to the content of the Intraoperative Record and any orders documented therein. Any exceptions are noted below.
[2019-03-29 10:26] LABS: Creatinine Clr Calc Pharmacy 42.1 ml/min; Est GFR (African American) 58.2; Est GFR (Non-African American) 50.3
--- NOTE | 2019-03-29 10:31 | Fluoroscopy Report ---
FL retrograde includes kub CLINICAL HISTORY: CYSTO IN OR COMPARISON STUDY: None FLUOROSCOPY TIME: 1 minute 39 seconds NUMBER OF FLUOROSCOPIC IMAGES: 4 FINDINGS: Image intensifier was used intraoperatively for assistance in place and a left ureteral yasmin nt. IMPRESSION: Image intensifier usage for a left ureteral stent placement. The above report was generated using voice recognition software. It may contain grammatical, syntax or spelling errors. Electronically signed by: Phill Harper M.D. 03/29/2019 10:29 AM
--- NOTE | 2019-03-29 11:12 | Anesthesiology Progress Note ---
Date of Service March 29, 2019 Anesthesia Post Procedure Vital Signs Vital Signs: Temp Pulse Pulse Resp BP BP BP 03/29/19 11:00 77 14 91/63 L 03/29/19 10:50 80 16 84/60 L 03/29/19 10:40 88 16 90/59 L 03/29/19 10:30 93 H 14 90/56 L 03/29/19 10:22 36 C L 99 H 14 75/51 L 03/29/19 08:47 37.2 C 99 H 24 141/79 H 03/29/19 07:52 129 H 03/29/19 07:50 37.3 C 129 H 20 98/65 L 03/29/19 07:06 37.2 C 132 H 16 94/63 L 03/29/19 05:14 144 H 137/95 03/29/19 05:08 137/95 03/29/19 03:06 37.8 C H 99 H 16 111/73 03/28/19 23:06 37.8 C H 115 H 16 137/83 03/28/19 21:22 37.1 C 110 H 20 131/84 Pulse Ox Pulse Ox 03/29/19 11:00 100 03/29/19 10:50 100 03/29/19 10:40 100 03/29/19 10:30 99 03/29/19 10:22 100 03/29/19 08:47 96 03/29/19 07:52 03/29/19 07:50 93 03/29/19 07:06 93 03/29/19 05:14 03/29/19 05:08 03/29/19 03:06 94 03/28/19 23:06 96 03/28/19 21:22 95 95 Transfer of Care Handoff Completed per policy Notes Mental Status: alert / awake / arousable and participated in evaluation Patient Amnestic to Procedure: Yes Nausea / Vomiting: adequately controlled Pain: adequately controlled Airway Patency, RR, SpO2: stable & adequate BP & HR: stable & adequate Hydration State: stable & adequate Anesthetic Complications: no major complications apparent and Pt Satisfied with anesthetic care
[2019-03-29] MEDS ORDERED: BENZONATATE 100 MG CAPSULE PO PRN (11:38)
[2019-03-29] MEDS ORDERED: ALBUT/IPRATROP 3MG/0.5MG NEB 3 ML VIAL INH PRN (11:38)
[2019-03-29] MEDS ORDERED: NAPROXEN 250 MG TAB PO PRN (11:38)
--- NOTE | 2019-03-29 11:39 | Cardiology Consultation ---
Date of Consultation March 29, 2019 Assessment & Plan (1) Left ureteral stone: (2) Acute UTI: (3) Encounter for pre-operative examination: (4) Atrial fibrillation with rapid ventricular response: I agree with this patient's management so far. I would continue to treat her with rate control utilizing a beta-rizwan. She is currently on heparin. Hopefully she will convert spontaneously back to normal sinus rhythm after the stress of surgery and her obstructive uropathy have improved. History of Present Illness Attending Physician: Ronaldo Henderson MD History of Present Illness This is a 70-year-old female who has received most of her care through the [facility]. She was transferred from [facility] to this facility for care of an obstructive uropathy. She went to surgery this morning and a stent was placed by urology. At some point she developed atrial fibrillation with RVR. She has been treated with both IV and oral metoprolol. She remains in atrial fibrillation but her heart rates are under control. She has also been started on IV heparin without evidence of bleeding. Neurology is aware. She has no prior history of heart disease. She denies myocardial infarction, valvular heart disease, congestive heart failure or cardiac arrhythmias. She has no history of diabetes or strokes. She is treated for mild essential hypertension. Although she is tired during my interview she expresses no complaints of chest pain or shortness of breath. No dizziness or lightheadedness. Past medical history: Current mild episode of major depressive disorder without prior episode (HCC) COPD, moderate (HCC) Gastroesophageal reflux disease HTN, goal below 150/90 Obesity, Class I, BMI 30.0-34.9 (see actual BMI) Hypothyroidism Hyperlipidemia Malignant neoplasm of overlapping sites of left female breast (HCC) Smoker Allergies Allergy/AdvReac Type Severity Reaction Status Date / Time adhesive Allergy Unknown SKIN Verified 03/04/17 09:58 IRRIATION WITH SOME TAPE No Known Drug Allergies Allergy Unknown NONE Verified 03/04/17 09:58 shellfish derived Allergy Unknown ABDOMINAL Verified 03/04/17 09:58 PAIN Home Medications Home Medications Medication Instructions Recorded Confirmed Type Potassium Tab 99 mg PO DAILY 03/28/19 03/28/19 History albuterol sulfate [ProAir HFA] 2 puff INHALATION Q4 PRN 03/28/19 03/28/19 History anastrozole [Arimidex] 1 mg PO DAILY 03/28/19 03/28/19 History atenolol [Tenormin] 100 mg PO DAILY 03/28/19 03/28/19 History benzonatate [Tessalon Perles] 200 mg PO TID PRN 03/28/19 03/28/19 History bupropion HCl (smoking deter) 150 mg PO BID 03/28/19 03/28/19 History fluticasone furoate [Arnuity 1 inh INHALATION DAILY 03/28/19 03/28/19 History Ellipta] ipratropium-albuterol 3 ml INHALATION Q6 PRN 03/28/19 03/28/19 History levothyroxine 50 mcg PO DAILY 03/28/19 03/28/19 History lorazepam [Ativan] 1 mg PO BID PRN 03/28/19 03/28/19 History naproxen [Naprosyn] 500 mg PO Q12 PRN 03/28/19 03/28/19 History ranitidine HCl [Zantac] 150 mg PO BID 03/28/19 03/28/19 History Patient History Medical History Acute UTI Breast cancer, left Cancer, uterine Cataract of both eyes Left ureteral stone Surgical History History of hysterectomy for cancer Previous back surgery Social History Preferred Language: Citizen Of [place] Communication Ability: Effective 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 Beliefs That Will Affect Care: None Current Living Situation: Alone Current Living Situation Comment: house Other Information That Helps Us Care for You: No Feels Safe at Home: Yes Safety Concerns: Feels Safe At This Time Smoking Status: Current every day smoker Tobacco Type: cigarettes ; Cigarettes Per Day: 1/2 pack-10 cigaretts per day ; Do You Dip or Chew Tobacco: No ; Second Hand Exposure: No ; Tobacco Cessation Education Requested by Patient: No Hx Alcohol Use: Yes Alcohol type: other Hx Substance Use: No Review of Systems Review of Systems: All systems reviewed & are unremarkable except as noted in HPI & below Nothing additional. Physical Exam Physical Exam: General: no acute distress and stated age Head: normocephalic, no masses, lesions, tenderness or abnormalities Eyes: conjunctiva are pink and non-injected, sclera clear Neck: supple, no adenopathy, no bruits, normal jugular venous pulse, no hepatojugular reflux Chest: normal shape and normal respiratory effort Lungs: clear to auscultation and percussion Cardiac Exam: - irregular rate & rhythm, no murmurs gallops or rubs - normal S1, normal S2 Pulses: 2(+) throughout Abdomen: abdomen soft, non-tender, no abnormal masses and no hepatosplenomegaly Musculoskeletal: no gait disturbance, no joint inflammation, no deforming arthritis Extremities: no edema and no cyanosis Neuro: grossly normal exam Results & Data Vital Signs (Past 12 Hours) Vital Signs Temp Pulse Pulse Resp BP BP Pulse Ox 03/29/19 11:10 36.2 C L 78 14 91/63 L 100 03/29/19 11:00 77 14 91/63 L 100 03/29/19 10:50 80 16 84/60 L 100 03/29/19 10:40 88 16 90/59 L 100 03/29/19 10:30 93 H 14 90/56 L 99 03/29/19 10:22 36 C L 99 H 14 75/51 L 100 03/29/19 08:47 37.2 C 99 H 24 141/79 H 96 03/29/19 07:52 129 H 03/29/19 07:50 37.3 C 129 H 20 98/65 L 93 03/29/19 07:06 37.2 C 132 H 16 94/63 L 93 03/29/19 05:14 144 H 137/95 03/29/19 05:08 137/95 03/29/19 03:06 37.8 C H 99 H 16 111/73 94 Laboratory Results Laboratory Results - last 24 hr 03/28/19 03/28/19 03/28/19 22:45 22:45 23:17 APTT 32.8 H PTT Ratio 1.2 Sodium 131 L Potassium 3.6 Chloride 98 Carbon Dioxide 27 Anion Gap 7.0 BUN 21 H Creatinine 1.34 H Est Cr Clr Drug Dosing 32.9 Est GFR ( Amer) 43.9 Est GFR (Non-Af Amer) 37.9 BUN/Creatinine Ratio 15.8 Glucose 100 H Estimat Average Glucose Hemoglobin A1c Osmolality 276 L Lactate Calcium 8.7 Magnesium 1.6 L Troponin I 0.031 TSH 1.410 Urine Color Urine Appearance Urine pH Ur Specific [place] Urine Protein Urine Glucose (UA) Urine Ketones Urine Blood Urine Nitrite Urine Bilirubin Urine Urobilinogen Ur Leukocyte Esterase Urine WBC (Auto) Urine RBC (Auto) U Hyaline Cast (Auto) U Epithel Cells (Auto) Urine Bacteria (Auto) Urine Yeast Urine Osmolality 03/29/19 03/29/19 03/29/19 00:30 00:30 02:10 APTT PTT Ratio Sodium 130 L Potassium 4.0 Chloride 99 Carbon Dioxide 27 Anion Gap 4.0 BUN 21 H Creatinine 1.25 H Est Cr Clr Drug Dosing 35.3 Est GFR ( Amer) 47.7 Est GFR (Non-Af Amer) 41.2 BUN/Creatinine Ratio 16.7 Glucose 131 H Estimat Average Glucose Hemoglobin A1c Osmolality Lactate Calcium 8.3 L Magnesium 2.6 H Troponin I TSH Urine Color Dark Yellow Urine Appearance Turbid A Urine pH 5.0 Ur Specific [place] 1.019 Urine Protein 2+ H Urine Glucose (UA) Negative Urine Ketones Negative Urine Blood 3+ H Urine Nitrite Positive A Urine Bilirubin Negative Urine Urobilinogen Negative Ur Leukocyte Esterase 2+ H Urine WBC (Auto) >30 H Urine RBC (Auto) 0-4 U Hyaline Cast (Auto) 5-10 H U Epithel Cells (Auto) 20-30 H Urine Bacteria (Auto) Negative Urine Yeast Not Reportable Urine Osmolality 471 L 03/29/19 03/29/19 03/29/19 02:10 05:59 05:59 APTT PTT Ratio Sodium Potassium Chloride Carbon Dioxide Anion Gap BUN Creatinine 1.06 Est Cr Clr Drug Dosing 42.1 Est GFR ( Amer) 58.2 Est GFR (Non-Af Amer) 50.3 BUN/Creatinine Ratio Glucose Estimat Average Glucose Pending Hemoglobin A1c Pending Osmolality Lactate 1.3 Calcium Magnesium Troponin I TSH Urine Color Urine Appearance Urine pH Ur Specific [place] Urine Protein Urine Glucose (UA) Urine Ketones Urine Blood Urine Nitrite Urine Bilirubin Urine Urobilinogen Ur Leukocyte Esterase Urine WBC (Auto) Urine RBC (Auto) U Hyaline Cast (Auto) U Epithel Cells (Auto) Urine Bacteria (Auto) Urine Yeast Urine Osmolality 03/29/19 03/29/19 06:00 06:00 APTT 39.3 H PTT Ratio 1.5 Sodium 132 L Potassium Chloride Carbon Dioxide Anion Gap BUN Creatinine Est Cr Clr Drug Dosing Est GFR ( Amer) Est GFR (Non-Af Amer) BUN/Creatinine Ratio Glucose Estimat Average Glucose Hemoglobin A1c Osmolality Lactate Calcium Magnesium Troponin I TSH Urine Color Urine Appearance Urine pH Ur Specific [place] Urine Protein Urine Glucose (UA) Urine Ketones Urine Blood Urine Nitrite Urine Bilirubin Urine Urobilinogen Ur Leukocyte Esterase Urine WBC (Auto) Urine RBC (Auto) U Hyaline Cast (Auto) U Epithel Cells (Auto) Urine Bacteria (Auto) Urine Yeast Urine Osmolality Medications Administered Current Inpatient Medications Acetaminophen (Tylenol) 650 mg PO Q4H PRN PRN Reason: Pain or Fever Stop: 04/27/19 21:20 Albuterol (Ventolin Hfa) 2 puffs INH Q4 PRN PRN Reason: shortness of breath or wheezin Stop: 04/28/19 11:40 Albuterol (Duoneb) 3 ml INH Q6 PRN PRN Reason: Shortness Of Breath Or Wheezing Stop: 04/28/19 11:37 Anastrozole (Arimidex) 1 mg PO DAILY JAMILAH Stop: 04/28/19 08:59 Atropine Sulfate (Atropine Sulfate) 0.5 mg IV Q1M PRN PRN Reason: PACU Use-HR<40 &/or Bradycardi Stop: 03/29/19 14:03 Benzonatate (Tessalon Perle) 200 mg PO TID PRN PRN Reason: Cough Stop: 04/28/19 11:37 Bupropion HCl (Wellbutrin-Sr) 150 mg PO BID JAMILAH Stop: 04/28/19 08:59 Ephedrine Sulfate (Ephedrine Sulfate) 5 mg IV Q5M PRN PRN Reason: PACU Use Only-SBP<90 mmHg Stop: 03/29/19 14:03 Fentanyl Citrate (Fentanyl Citrate) 25 mcg IV Q5M PRN PRN Reason: PACU Use Only-Pain Stop: 03/29/19 14:03 Hydromorphone HCl (Dilaudid) 0.25 mg IV Q3H PRN PRN Reason: Pain Stop: 04/11/19 22:10 Hydromorphone HCl (Dilaudid) 0.25 mg IV Q5M PRN PRN Reason: PACU Use Only-Pain Stop: 03/29/19 14:03 Promethazine HCl 12.5 mg/ (Sodium Chloride) 50.5 mls @ 202 mls/hr IV Q6H PRN PRN Reason: Nausea And Vomiting Stop: 04/27/19 22:10 Last Infusion: 03/29/19 06:54 Dose: Infused Documented by: Heparin Sodium/Dextrose (Heparin Sodium/Dextrose) 25,000 units in 500 mls @ 16 mls/hr IV .Q24H [facility]; Protocol Stop: 04/27/19 23:14 Last Titration: 03/29/19 07:06 Dose: 800 units/hr, 16 mls/hr Documented by: Cefepime HCl 2,000 mg/ Syringe 20 mls @ 5 mls/min IV Q24H [facility]; Protocol Stop: 04/07/19 23:44 Last Admin: 03/29/19 00:05 Dose: 5 mls/min Documented by: Potassium Chloride/Sodium Chloride (Normal Saline W/20 Meq Kcl) 20 meq in 1,000 mls @ 80 mls/hr IV .[id number] [facility] Stop: 04/28/19 04:29 Last Infusion: 03/29/19 06:15 Dose: 80 mls/hr Documented by: Ciprofloxacin (Cipro) 400 mg in 200 mls @ 100 mls/hr IV PREOP@1000 [facility]; Protocol Stop: 03/29/19 23:59 Last Admin: 03/29/19 09:48 Dose: 100 mls/hr Documented by: Levothyroxine Sodium (Synthroid) 50 mcg PO DAILYBB [facility] Stop: 04/28/19 06:29 Last Admin: 03/29/19 05:15 Dose: 50 mcg Documented by: Lorazepam (Ativan) 1 mg PO BID PRN PRN Reason: anxiety Stop: 04/27/19 22:09 Metoprolol Tartrate (Lopressor) 50 mg PO BID [facility] Stop: 04/28/19 06:29 Last Admin: 03/29/19 11:40 Dose: Not Given Documented by: Metoprolol Tartrate (Lopressor) 2.5 mg IV Q6 PRN PRN Reason: Tachycardia Stop: 04/28/19 11:59 Miscellaneous (Order Awaiting Action) 1 ea N/A QS [facility] Stop: 04/27/19 22:29 Last Admin: 03/29/19 00:05 Dose: Not Given Documented by: Miscellaneous Information (Cefepime Consult Active) 1 ea N/A UD PRN PRN Reason: Consult Stop: 04/27/19 23:46 Naproxen (Naprosyn) 500 mg PO Q12 PRN PRN Reason: Pain Stop: 04/28/19 11:37 Nicotine Polacrilex (Nicorette 2mg) 1 piece MT Q1H PRN PRN Reason: smoking urge Stop: 04/27/19 22:01 Nitroglycerin (Nitrostat) 0.4 mg SL UD PRN PRN Reason: Chest Pain Stop: 04/27/19 21:20 Ondansetron HCl (Zofran) 4 mg IV ONCE PRN PRN Reason: PACU Use Only-Nausea/Vomiting Stop: 03/29/19 14:03 Oxycodone HCl (Roxicodone Immediate Rel) 5 mg PO Q4H PRN PRN Reason: Pain Stop: 04/11/19 22:10 Phenazopyridine HCl (Pyridium) 100 mg PO TID PRN PRN Reason: Bladder pain Stop: 04/28/19 11:46 Ranitidine HCl (Zantac) 150 mg PO BID JAMILAH Stop: 04/28/19 08:59 Tamsulosin HCl (Flomax) 0.4 mg PO HS JAMILAH Stop: 04/28/19 20:59
[2019-03-29] MEDS: METOPROLOL TARTRATE 50 MG TAB PO SCH ×2 (11:40→20:09)
[2019-03-29] MEDS ORDERED: ALBUTEROL HFA 8 GM INHALER INH PRN (11:41)
[2019-03-29] MEDS ORDERED: PHENAZOPYRIDINE HCL 100 MG TAB PO PRN (11:47)
[2019-03-29] MEDS: BuPROPion SR 150 MG TABCR PO SCH ×2 (13:06→20:11)
[2019-03-29] MEDS: ANASTROZOLE 1 MG TAB PO SCH (13:06)
[2019-03-29 13:44] LABS: Partial Thromboplastin Time 54.4 Seconds (21.0-31.0)
--- NOTE | 2019-03-29 17:23 | Hospitalist Progress Note ---
Date of Service March 29, 2019 Assessment & Plan (1) Atrial fibrillation with rapid ventricular response: Atrial fibrillation with RVR New onset Normal TSH Echo: EF 60 to 65%, mild MR, right and left ventricular systolic function is normal Started on metoprolol 50 mg twice daily Lopressor IV as needed On IV heparin for anticoagulation Appreciate cardiology input Monitor electrolytes and replace as needed Complicated UTI Left ureteral stone S/P left ureteral stent placement POD#0 Continue IV cefepime Blood, urine cultures pending Continue IV fluids Appreciate urology input Hypertension Slightly low on presentation stable Continue current medications H/O Breast cancer S/P surgery radiation on hormonal Rx Seroma not a new finding as per patient. Patient follows with [facility] in [place], [facility] Continue home Medicaid Hyponatremia Likely secondary to dehydration Continue IV fluids Monitor sodium levels H/O Uterine cancer S/P surgery H/O Chronic thrombocytopenia Platelets within normal limits Hypothyroidism TSH within normal limits Continue levothyroxine hyperglycemia Hemoglobin A1c pending Ongoing tobacco abuse Counseled to quit smoking DVT Px: On IV heparin Code Status Full Code Disposition PT OT prior to discharge Subjective Patient is seen and examined at bedside Had left ureteral stent placement this morning Patient is slightly drowsy from anesthesia during my exam today Reports having dysuria Denies any chest pain, shortness of breath, palpitations, abdominal pain Offers no other complaints Review of Systems Review of Systems: All systems reviewed & are unremarkable except as noted in HPI & below Physical Exam Physical Exam: Physical Exam: Vitals signs as noted above General Appearance:Moderately built and nourished, no apparent distress, Elderly Head: normocephalic, Atraumatic Eyes: normal inspection, EOMI Neck: supple, Trachea midline Respiratory/Chest: Normal breath sounds, CTA Cardiovascular: Irregularly irregular, No murmur Abdomen/GI:Soft, mild tender, Bowel sounds present Extremities/Musculoskelatal:normal inspection, no edema Neurologic/Psych:AAOX3, grossly no focal neurological deficits Skin: normal color, warm Results & Data Vital Signs (Past 12 Hours) Vital Signs Temp Pulse Pulse Resp BP BP Pulse Ox 03/29/19 14:59 36.6 C 84 19 115/75 96 03/29/19 12:15 82 16 128/89 97 03/29/19 12:00 82 16 104/64 96 03/29/19 11:30 37 C 80 18 93/61 L 93 03/29/19 11:10 36.2 C L 78 14 91/63 L 100 03/29/19 11:00 77 14 91/63 L 100 03/29/19 10:50 80 16 84/60 L 100 03/29/19 10:40 88 16 90/59 L 100 03/29/19 10:30 93 H 14 90/56 L 99 03/29/19 10:22 36 C L 99 H 14 75/51 L 100 03/29/19 08:47 37.2 C 99 H 24 141/79 H 96 03/29/19 07:52 129 H 03/29/19 07:50 37.3 C 129 H 20 98/65 L 93 03/29/19 07:06 37.2 C 132 H 16 94/63 L 93 03/29/19 05:14 144 H 137/95 Laboratory Results [facility] 03/28/19 03/29/19 03/29/19 22:45 02:10 05:59 Sodium 131 L 130 L Potassium 3.6 4.0 Chloride 98 99 Carbon Dioxide 27 27 BUN 21 H 21 H Creatinine 1.34 H 1.25 H 1.06 Glucose 100 H 131 H Calcium 8.7 8.3 L 03/29/19 06:00 Sodium 132 L Potassium Chloride Carbon Dioxide BUN Creatinine Glucose Calcium Cardiac Enzymes 03/28/19 Range/Units 22:45 Troponin I 0.031 (0-0.045) ng/ml Urine 03/29/19 Range/Units 00:30 Urine Color Dark Yellow Urine Appearance Turbid A (Clear) Urine pH 5.0 (4.5-7.5) Ur Specific [place] 1.019 (1.000-1.030) Urine Protein 2+ H (Negative) Urine Glucose (UA) Negative (Negative)
[2019-03-29] MEDS: TAMSULOSIN HCL 0.4 MG CAP PO SCH (20:09)
[2019-03-30] MEDS: LEVOTHYROXINE SODIUM 50 MCG TABLET PO SCH (05:44)
[2019-03-30 05:50] LABS: Estimated Average Glucose 105 mg/dl; Hemoglobin A1C 5.3 % (4.5-5.6)
[2019-03-30] MEDS: ANASTROZOLE 1 MG TAB PO SCH (07:49)
[2019-03-30] MEDS: BuPROPion SR 150 MG TABCR PO SCH ×3 (07:49→21:04)
[2019-03-30] MEDS: METOPROLOL TARTRATE 50 MG TAB PO SCH ×2 (07:49→21:03)
--- NOTE | 2019-03-30 07:49 | Anesthesiology Progress Note ---
Date of Service March 30, 2019 Anesthesia Post Procedure Vital Signs Vital Signs: Temp Pulse Resp BP Pulse Ox Pulse Ox 03/30/19 07:39 36.3 C L 103 H 20 161/100 H 97 03/30/19 03:54 36.6 C 112 H 18 149/100 H 94 03/29/19 23:16 36.4 C L 81 16 123/82 95 03/29/19 20:00 98 03/29/19 19:37 36.3 C L 103 H 20 114/78 98 03/29/19 14:59 36.6 C 84 19 115/75 96 03/29/19 12:15 82 16 128/89 97 03/29/19 12:00 82 16 104/64 96 03/29/19 11:30 37 C 80 18 93/61 L 93 03/29/19 11:10 36.2 C L 78 14 91/63 L 100 03/29/19 11:00 77 14 91/63 L 100 03/29/19 10:50 80 16 84/60 L 100 03/29/19 10:40 88 16 90/59 L 100 03/29/19 10:30 93 H 14 90/56 L 99 03/29/19 10:22 36 C L 99 H 14 75/51 L 100 03/29/19 08:47 37.2 C 99 H 24 141/79 H 96 Notes Mental Status: alert / awake / arousable and participated in evaluation Patient Amnestic to Procedure: Yes Nausea / Vomiting: adequately controlled Pain: adequately controlled Airway Patency, RR, SpO2: stable & adequate BP & HR: stable & adequate Hydration State: stable & adequate Anesthetic Complications: no major complications apparent Notes: Patient's family reported patient became confused throughout night. Team attributing it to sundowning and infection. This morning patient pleasant and appropriate. Denied any pain or issues with anesthesia.
[2019-03-30] MEDS: HEPARIN SODIUM/DEXTROSE 25,000 UNITS/500 ML BAG IV SCH (08:00)
[2019-03-30 08:03] LABS: Partial Thromboplastin Ratio 1.7
[2019-03-30 08:10] LABS: Hematocrit (blood only) 33.1 % (37-47); Hemoglobin 11.4 g/dL (12.0-16.0); Mean Corpuscular Hemoglobin 31.9 pg (25-34); Mean Corpuscular Hgb Conc 34.4 g/dL (32-36); Mean Corpuscular Volume 92.7 fL (80-100); Mean Platelet Volume 11.9 fL (7.4-10.4); Platelet Count 93 K/uL (130-400); Platelet Estimate Decreased (Normal); RDW Coefficient of Variation 13.1 % (11.5-14.5); RDW Standard Deviation 44.6 fL (36.4-46.3); Red Blood Count 3.57 M/uL (4.2-5.4)
[2019-03-30 08:12] LABS: BUN Creatinine Ratio 17.5 (10-20); Calcium 9.1 mg/dl (8.5-10.1); Creatinine Clr Calc Pharmacy 53.8 ml/min; Est GFR (African American) 78.3; Est GFR (Non-African American) 67.5
--- NOTE | 2019-03-30 08:55 | Urology Progress Note ---
Date of Service March 30, 2019 Assessment & Plan (1) Left ureteral stone: (2) Acute UTI: 78yo F POD #1 left ureteral stent, suspected UTI Pt is tolerating stent well. Expected clinical course reviewed with pt and family. Awaiting kidney UC&S, continue broad spectrum abx Pt will require 2 weeks abx coverage pending sensitivities prior to stone treatment as outpatient, this should allow for cardiac episode to improve as well. Per cardiology, hopeful pt will convert back to NSR after stress of procedure. Will obtain KUB in AM to determine stone visibility. Thank you for allowing us to participate in the acute care of Ms. Sandy. Please reconsult us with additional questions, concerns or changes in patient status. Subjective 78yo F POD #1 s/p cysto, left ureteral stent placement secondary to 6mm prox left ureteral stone, moderate hydro, suspected UTI, febrile illness Family at bedside. Pt had some confusion last evening, otherwise doing okay. Now oriented and alert. Tearful when discussing events from last night. Continues on heparin gtt for new onset Afib. Renal UC&S pending from yesterday, prelim BCx negative. Tolerating stent well. Good UO. Urine not visualized today but some hematuria per family as anti cipated. Mild dysuria, urgency. This is her first stone. Review of Systems Review of Systems: All systems reviewed & are unremarkable except as noted in HPI & below Physical Exam Physical Exam: A&Ox3 RRR abd soft, nontender tearful Results & Data Vital Signs (Past 12 Hours) Vital Signs Temp Pulse Resp BP Pulse Ox 03/30/19 07:39 36.3 C L 103 H 20 161/100 H 97 03/30/19 03:54 36.6 C 112 H 18 149/100 H 94 03/29/19 23:16 36.4 C L 81 16 123/82 95 PG Care Time/CCT Total # of Minutes Spent Total Time Spent with Patient: Total time spent is greater than 50% in coordination of care (as documented) at patient's floor/unit and/or counseling patient:
[2019-03-30] MEDS ORDERED: ATENOLOL 50 MG TABLET PO SCH (09:00)
[2019-03-30] MEDS ORDERED: POTASSIUM 99 MG PO SCH (09:00)
--- NOTE | 2019-03-30 10:09 | Cardiology Progress Note ---
Date of Service March 30, 2019 Assessment & Plan (1) Left ureteral stone: (2) Acute UTI: (3) Encounter for pre-operative examination: (4) Atrial fibrillation with rapid ventricular response: The patient converted to normal sinus rhythm earlier this morning. Her David vas score is 4 and I think she should go home on anticoagulation at least in the short-term. I will DC her heparin. I started her on Eliquis 2.5 mg twice daily for now. For patients less than 80 years of age the recommendation is for 5 mg twice daily. This patient is an old 78, I believe a lower dose of Eliquis is indicated at this time. I would continue with the metoprolol at its current dose. I will give amlodipine for better blood pressure control. Subjective The patient is comfortable sitting in a chair. She converted to normal sinus rhythm early this morning. Review of Systems Review of Systems: All systems reviewed & are unremarkable except as noted in HPI & below Nothing additional. Physical Exam Physical Exam: General: no acute distress and stated age Head: normocephalic, no masses, lesions, tenderness or abnormalities Eyes: conjunctiva are pink and non-injected, sclera clear Neck: supple, no adenopathy, no bruits, normal jugular venous pulse, no hepatojugular reflux Chest: normal shape and normal respiratory effort Lungs: clear to auscultation and percussion Cardiac Exam: - regular rate & rhythm, no murmurs gallops or rubs - normal S1, normal S2 Pulses: 2(+) throughout Abdomen: abdomen soft, non-tender, no abnormal masses and no hepatosplenomegaly Musculoskeletal: no gait disturbance, no joint inflammation, no deforming arthritis Extremities: no edema and no cyanosis Neuro: grossly normal exam Results & Data Vital Signs (Past 12 Hours) Vital Signs Temp Pulse Resp BP Pulse Ox 03/30/19 07:39 36.3 C L 103 H 20 161/100 H 97 03/30/19 03:54 36.6 C 112 H 18 149/100 H 94 03/29/19 23:16 36.4 C L 81 16 123/82 95 Laboratory Results Laboratory Results - last 24 hr 03/29/19 03/29/19 03/29/19 05:59 05:59 12:53 WBC RBC Hgb Hct MCV MCH MCHC RDW Std Deviation RDW Coeff of Annel Plt Count MPV Platelet Estimate APTT 54.4 H* PTT Ratio 2.0 Sodium Potassium Chloride Carbon Dioxide Anion Gap BUN Creatinine 1.06 Est Cr Clr Drug Dosing 42.1 Est GFR ( Amer) 58.2 Est GFR (Non-Af Amer) 50.3 BUN/Creatinine Ratio Glucose Estimat Average Glucose 105 Hemoglobin A1c 5.3 Calcium Magnesium Heparin-PF4 Ab Screen 03/30/19 03/30/19 03/30/19 07:32 07:32 07:32 WBC 6.40 RBC 3.57 L Hgb 11.4 L Hct 33.1 L MCV 92.7 MCH 31.9 MCHC 34.4 RDW Std Deviation 44.6 RDW Coeff of Annel 13.1 Plt Count 93 L MPV 11.9 H Platelet Estimate Decreased L APTT 46.0 H* PTT Ratio 1.7 Sodium 138 Potassium 5.0 D Chloride 110 H Carbon Dioxide 23 Anion Gap 5.0 BUN 15 Creatinine 0.83 Est Cr Clr Drug Dosing 53.8 Est GFR ( Amer) 78.3 Est GFR (Non-Af Amer) 67.5 BUN/Creatinine Ratio 17.5 Glucose 118 H Estimat Average Glucose Hemoglobin A1c Calcium 9.1 Magnesium 2.0 Heparin-PF4 Ab Screen 03/30/19 08:59 WBC RBC Hgb Hct MCV MCH MCHC RDW Std Deviation RDW Coeff of Annel Plt Count MPV Platelet Estimate APTT PTT Ratio Sodium Potassium Chloride Carbon Dioxide Anion Gap BUN Creatinine Est Cr Clr Drug Dosing Est GFR ( Amer) Est GFR (Non-Af Amer) BUN/Creatinine Ratio Glucose Estimat Average Glucose Hemoglobin A1c Calcium Magnesium Heparin-PF4 Ab Screen Pending Medications Administered Current Inpatient Medications Acetaminophen (Tylenol) 650 mg PO Q4H PRN PRN Reason: Pain or Fever Stop: 04/27/19 21:20 Last Admin: 03/30/19 08:00 Dose: 650 mg Documented by: Albuterol (Ventolin Hfa) 2 puffs INH Q4 PRN PRN Reason: shortness of breath or wheezin Stop: 04/28/19 11:40 Albuterol (Duoneb) 3 ml INH Q6 PRN PRN Reason: Shortness Of Breath Or Wheezing Stop: 04/28/19 11:37 Anastrozole (Arimidex) 1 mg PO DAILY [facility] Stop: 04/28/19 08:59 Last Admin: 03/30/19 07:49 Dose: 1 mg Documented by: Apixaban (Eliquis) 2.5 mg PO BID [facility] Stop: 04/29/19 10:14 Benzonatate (Tessalon Perle) 200 mg PO TID PRN PRN Reason: Cough Stop: 04/28/19 11:37 Bupropion HCl (Wellbutrin-Sr) 150 mg PO BID [facility] Stop: 04/28/19 08:59 Last Admin: 03/30/19 08:01 Dose: Not Given Documented by: Hydromorphone HCl (Dilaudid) 0.25 mg IV Q3H PRN PRN Reason: Pain Stop: 04/11/19 22:10 Promethazine HCl 12.5 mg/ (Sodium Chloride) 50.5 mls @ 202 mls/hr IV Q6H PRN PRN Reason: Nausea And Vomiting Stop: 04/27/19 22:10 Last Infusion: 03/29/19 06:54 Dose: Infused Documented by: Cefepime HCl 2,000 mg/ Syringe 20 mls @ 5 mls/min IV Q24H [facility]; Protocol Stop: 04/07/19 23:44 Last Admin: 03/29/19 22:18 Dose: 5 mls/min Documented by: Levothyroxine Sodium (Synthroid) 50 mcg PO DAILYBB [facility] Stop: 04/28/19 06:29 Last Admin: 03/30/19 05:44 Dose: 50 mcg Documented by: Lorazepam (Ativan) 1 mg PO BID PRN PRN Reason: anxiety Stop: 04/27/19 22:09 Last Admin: 03/29/19 22:30 Dose: 1 mg Documented by: Metoprolol Tartrate (Lopressor) 50 mg PO BID [facility] Stop: 04/28/19 06:29 Last Admin: 03/30/19 07:49 Dose: 50 mg Documented by: Metoprolol Tartrate (Lopressor) 2.5 mg IV Q6 PRN PRN Reason: Tachycardia Stop: 04/28/19 11:59 Miscellaneous (Order Awaiting Action) 1 ea N/A QS [facility] Stop: 04/27/19 22:29 Last Admin: 03/30/19 00:16 Dose: Not Given Documented by: Miscellaneous Information (Cefepime Consult Active) 1 ea N/A UD PRN PRN Reason: Consult Stop: 04/27/19 23:46 Nicotine Polacrilex (Nicorette 2mg) 1 piece MT Q1H PRN PRN Reason: smoking urge Stop: 04/27/19 22:01 Nitroglycerin (Nitrostat) 0.4 mg SL UD PRN PRN Reason: Chest Pain Stop: 04/27/19 21:20 Oxycodone HCl (Roxicodone Immediate Rel) 5 mg PO Q4H PRN PRN Reason: Pain Stop: 04/11/19 22:10 Phenazopyridine HCl (Pyridium) 100 mg PO TID PRN PRN Reason: Bladder pain Stop: 04/28/19 11:46 Last Admin: 03/29/19 13:18 Dose: 100 mg Documented by: Ranitidine HCl (Zantac) 150 mg PO BID [facility] Stop: 04/28/19 08:59 Last Admin: 03/30/19 07:49 Dose: 150 mg Documented by: Tamsulosin HCl (Flomax) 0.4 mg PO HS [facility] Stop: 04/28/19 20:59 Last Admin: 03/29/19 20:09 Dose: 0.4 mg Documented by:
[2019-03-30] MEDS: APIXABAN 2.5 MG TAB PO SCH ×2 (10:49→20:58)
[2019-03-30] MEDS: NSS + 20MEQ KCL 20 MEQ/1,000 ML BAG IV SCH (11:11)
[2019-03-30] MEDS: PROMETHAZINE HCL 12.5 MG in SODIUM CHLORIDE 0.9% 50 ML IV PRN (11:14)
[2019-03-30] MEDS ORDERED: INFLUENZA VACCINE HIGH DOSE 65+ 0.5 ML SYR IM ONE ×2 (11:30→13:45)
[2019-03-30] MEDS: AMLODIPINE BESYLATE 5 MG TAB PO SCH (11:48)
--- NOTE | 2019-03-30 17:12 | Hospitalist Progress Note ---
Date of Service March 30, 2019 Assessment & Plan (1) Atrial fibrillation with rapid ventricular response: Atrial fibrillation with RVR New onset Normal TSH Echo: EF 60 to 65%, mild MR, right and left ventricular systolic function is normal Continue Metoprolol 50 mg twice daily Lopressor IV PRN On IV heparin transition to Eliquis for anticoagulation Appreciate cardiology input Monitor electrolytes and replace as needed Left ureteral stone S/P left ureteral stent placement POD#0 UTI--ruled out Discontinue IV cefepime Blood, urine cultures: No growth to date Received IV fluids Appreciate urology input Continue flomax Needs follow up with Urology upon discharge KUB in AM Delirium Reorient frequently Avoid Narcotics as able Hypertension Slightly low on presentation stable Added amlodipine for better BP control H/O Breast cancer S/P surgery radiation on hormonal Rx Seroma not a new finding as per patient. Patient follows with [facility], [facility] Continue home Medicaid Hyponatremia Likely secondary to dehydration Resolved Received IV fluids Monitor sodium levels H/O Uterine cancer S/P surgery H/O Chronic thrombocytopenia Platelets drop likely due to IV heparin HIT screen negative IV heparin discontinued monitor platelets Hypothyroidism TSH within normal limits Continue levothyroxine hyperglycemia Hemoglobin A1c:5.3 Diabetes ruled out Ongoing tobacco abuse Counseled to quit smoking DVT Px: On Eliquis--low dose due to age Code Status Full Code Disposition PT OT prior to discharge Subjective Patient is seen and examined at bedside Converted to sinus this morning Complains of nausea, no vomiting Transient confusion overnight--resolved Mild dysuria and RLQ discomfort Denies any chest pain, shortness of breath Review of Systems Review of Systems: All systems reviewed & are unremarkable except as noted in HPI & below Physical Exam Physical Exam: Physical Exam: Vitals signs as noted above General Appearance:Moderately built and nourished, no apparent distress, Elderly Head: normocephalic, Atraumatic Eyes: normal inspection, EOMI Neck: supple, Trachea midline Respiratory/Chest: Normal breath sounds, CTA Cardiovascular: S1, S2, No murmur Abdomen/GI:Soft, mild tender, Bowel sounds present Extremities/Musculoskelatal:normal inspection, no edema Neurologic/Psych:AAOX3, grossly no focal neurological deficits Skin: normal color, warm Results & Data Vital Signs (Past 12 Hours) Vital Signs Temp Pulse Pulse Resp BP Pulse Ox 03/30/19 15:31 36.4 C L 86 18 107/67 96 03/30/19 14:56 82 03/30/19 12:01 36.5 C 100 H 18 159/98 H 98 03/30/19 07:39 36.3 C L 103 H 20 161/100 H 97 Laboratory Results Short CBC 03/30/19 Range/Units 07:32 WBC 6.40 (4.8-10.8) K/uL Hgb 11.4 L (12.0-16.0) g/dL Hct 33.1 L (37-47) % Plt Count 93 L (130-400) K/uL BMP 03/30/19 07:32 Sodium 138 Potassium 5.0 D Chloride 110 H Carbon Dioxide 23 BUN 15 Creatinine 0.83 Glucose 118 H Calcium 9.1
[2019-03-30] MEDS ORDERED: CIPROFLOXACIN 250 MG TAB PO SCH (18:00)
[2019-03-30] MEDS: TAMSULOSIN HCL 0.4 MG CAP PO SCH (21:04)
[2019-03-31] MEDS ORDERED: HALOPERIDOL LACTATE 5 MG/ML 1 ML VIAL IM PRN (01:07)
--- NOTE | 2019-03-31 01:08 | Hospitalist Progress Note ---
Date of Service March 31, 2019 Subjective Patient noted to be agitated and delirious. Dressing up to leave the hospital. AP Delirium Haldol PRN Hold Cipro course for now. Will relay to AM provider. Results & Data Vital Signs (Past 12 Hours) Vital Signs Temp Pulse Pulse Resp BP Pulse Ox 03/30/19 23:00 36.3 C L 65 20 133/77 98 03/30/19 22:20 63 03/30/19 19:48 36.4 C L 72 19 137/83 98 03/30/19 15:31 36.4 C L 86 18 107/67 96 03/30/19 14:56 82
[2019-03-31] MEDS ORDERED: SODIUM CHLORIDE 0.9% 1000ML 1,000 ML IV ONE (01:10)
[2019-03-31] MEDS ORDERED: HALOPERIDOL LACTATE 5 MG/ML 1 ML VIAL ONE (01:12)
[2019-03-31 01:35] LABS: Hemoglobin 11.4 g/dL (12.0-16.0); Mean Corpuscular Hemoglobin 31.9 pg (25-34); Mean Corpuscular Hgb Conc 33.5 g/dL (32-36); Mean Corpuscular Volume 95.2 fL (80-100); Mean Platelet Volume 12.4 fL (7.4-10.4); Platelet Count 114 K/uL (130-400); RDW Coefficient of Variation 13.3 % (11.5-14.5); RDW Standard Deviation 46.6 fL (36.4-46.3); Red Blood Count 3.57 M/uL (4.2-5.4); White Blood Count 8.51 K/uL (4.8-10.8)
[2019-03-31 01:53] LABS: BUN Creatinine Ratio 20.7 (10-20); Basophils # (auto) 0.01 K/uL (0-0.2); Basophils % (auto) 0.1 %; Calcium 9.1 mg/dl (8.5-10.1); Dohle Bodies 1+; Eosinophils # (auto) 0.01 K/uL (0-0.5); Eosinophils % (auto) 0.1 %; Est GFR (African American) 68.2; Est GFR (Non-African American) 58.9; Giant Platelets 2+; Immature Granulocytes # (auto) 0.05 K/uL (0.00-0.02); Immature Granulocytes % (auto) 0.6 %; Lymphocytes # (auto) 1.02 K/uL (1.2-3.4); Monocytes # (auto) 0.88 K/uL (0.11-0.59); Monocytes % (auto) 10.3 %; Neutrophils # (auto) 6.54 K/uL (1.4-6.5); Neutrophils % (auto) 76.9 %; Potassium 4.7 mmol/L (3.5-5.1); Toxic Vacuolation 1+
[2019-03-31] MEDS: LEVOTHYROXINE SODIUM 50 MCG TABLET PO SCH (05:39)
[2019-03-31] MEDS: ANASTROZOLE 1 MG TAB PO SCH (08:14)
[2019-03-31] MEDS: AMLODIPINE BESYLATE 5 MG TAB PO SCH (08:14)
[2019-03-31] MEDS: BuPROPion SR 150 MG TABCR PO SCH (08:14)
[2019-03-31] MEDS: APIXABAN 2.5 MG TAB PO SCH (08:14)
[2019-03-31] MEDS: METOPROLOL TARTRATE 50 MG TAB PO SCH (08:14)
--- NOTE | 2019-03-31 08:34 | XRay Report ---
XR KUB/Abdomen 1 view CLINICAL HISTORY: Left ureteral calculus COMPARISON STUDY: Outside CT scan dated 03/28/2019 FINDINGS: There is no pathologic bowel dilatation. There is an old T12 compression fracture status po st vertebroplasty. There are scattered opaque densities within the bowel likely representing pill fra gments. No renal calculi are visualized. There is a left-sided nephroureteral stent. The proximal lef t ureteral calculus visualized in the prior CT scan is not visualized with certainty. Calcifications overlying the stent at the level of the sacrum, likely represent atherosclerotic vascular calcificati on. IMPRESSION: 1. No evidence of pathologic bowel dilatation 2. Left-sided double pigtail nephroureteral stent 3. The previously identified proximal left ureteral calculus is not visualized with certainty Electronically signed by: Matt Gomez M.D. 03/31/2019 8:33 AM
--- NOTE | 2019-03-31 15:02 | Hospitalist Progress Note ---
Date of Service March 31, 2019 Assessment & Plan (1) Atrial fibrillation with rapid ventricular response: Atrial fibrillation with RVR New onset Normal TSH Echo: EF 60 to 65%, mild MR, right and left ventricular systolic function is normal Continue Metoprolol 50 mg twice daily Lopressor IV PRN On IV heparin transition to Eliquis for anticoagulation Appreciate cardiology input Monitor electrolytes and replace as needed Left ureteral stone S/P left ureteral stent placement POD#0 UTI--ruled out Discontinue IV cefepime Blood, urine cultures: No growth to date Received IV fluids Appreciate urology input Continue flomax Needs follow up with Urology upon discharge KUB: Left-sided nephroureteral stent. The previously identified proximal left ureteral calculus is not visualized with certainty. Delirium Reorient frequently Avoid Narcotics/sedative meds as able Hypertension Slightly low on presentation stable Added amlodipine for better BP control H/O Breast cancer S/P surgery radiation on hormonal Rx Seroma not a new finding as per patient. Patient follows with [facility], [facility] Continue home Medications Hyponatremia Likely secondary to dehydration Resolved Received IV fluids Monitor sodium levels H/O Uterine cancer S/P surgery H/O Chronic thrombocytopenia Platelets drop likely due to IV heparin HIT screen negative IV heparin discontinued Platelet count slowly improving Hypothyroidism TSH within normal limits Continue levothyroxine hyperglycemia Hemoglobin A1c:5.3 Diabetes ruled out Ongoing tobacco abuse Counseled to quit smoking DVT Px: On Eliquis--low dose due to age Code Status Full Code Disposition Plan to discharge home when medically stable Subjective Patient is seen and examined at bedside Was delirious overnight which currently resolved Minimal dysuria Denies any nausea, vomiting, abdominal pain, hematuria Family at bedside Also denies any chest pain, shortness of breath, dizziness Offers no other complaints Eager to get discharged Review of Systems Review of Systems: All systems reviewed & are unremarkable except as noted in HPI & below Physical Exam Physical Exam: Physical Exam: Vitals signs as noted above General Appearance:Moderately built and nourished, no apparent distress, Elderly Head: normocephalic, Atraumatic Eyes: normal inspection, EOMI Neck: supple, Trachea midline Respiratory/Chest: Normal breath sounds, CTA Cardiovascular: S1, S2, No murmur Abdomen/GI:Soft, non tender, Bowel sounds present Extremities/Musculoskelatal:normal inspection, no edema Neurologic/Psych:AAOX3, grossly no focal neurological deficits Skin: normal color, warm Results & Data Vital Signs (Past 12 Hours) Vital Signs Temp Pulse Resp BP Pulse Ox 03/31/19 12:04 36.6 C 63 16 147/85 H 96 03/31/19 07:08 36.8 C 86 18 140/66 98 03/31/19 03:54 36.9 C 65 20 149/83 H 97 Laboratory Results Short CBC 03/31/19 Range/Units 01:21 WBC 8.51 (4.8-10.8) K/uL Hgb 11.4 L (12.0-16.0) g/dL Hct 34.0 L (37-47) % Plt Count 114 L (130-400) K/uL BMP 03/31/19 01:21 Sodium 138 Potassium 4.7 Chloride 110 H Carbon Dioxide 24 BUN 19 H Creatinine 0.93 Glucose 91 Calcium 9.1
--- NOTE | 2019-03-31 15:06 | Cardiology Progress Note ---
Date of Service March 31, 2019 Assessment & Plan (1) Left ureteral stone: (2) Acute UTI: (3) Encounter for pre-operative examination: (4) Atrial fibrillation with rapid ventricular response: Believe the patient is ready for discharge today. She should continue her current medications including the Eliquis. I will arrange follow-up next week with our cardiology clinic. Subjective The patient is anxious to go home. She has no new cardiac complaints. Review of Systems Review of Systems: All systems reviewed & are unremarkable except as noted in HPI & below Nothing additional to add. Physical Exam Physical Exam: General: no acute distress and stated age Head: normocephalic, no masses, lesions, tenderness or abnormalities Eyes: conjunctiva are pink and non-injected, sclera clear Neck: supple, no adenopathy, no bruits, normal jugular venous pulse, no hepatojugular reflux Chest: normal shape and normal respiratory effort Lungs: clear to auscultation and percussion Cardiac Exam: - regular rate & rhythm, no murmurs gallops or rubs - normal S1, normal S2 Pulses: 2(+) throughout Abdomen: abdomen soft, non-tender, no abnormal masses and no hepatosplenomegaly Musculoskeletal: no gait disturbance, no joint inflammation, no deforming arthritis Extremities: no edema and no cyanosis Neuro: grossly normal exam Results & Data Vital Signs (Past 12 Hours) Vital Signs Temp Pulse Resp BP Pulse Ox 03/31/19 12:04 36.6 C 63 16 147/85 H 96 03/31/19 07:08 36.8 C 86 18 140/66 98 03/31/19 03:54 36.9 C 65 20 149/83 H 97 Laboratory Results Laboratory Results - last 24 hr 03/31/19 03/31/19 01:21 01:21 WBC 8.51 RBC 3.57 L Hgb 11.4 L Hct 34.0 L MCV 95.2 MCH 31.9 MCHC 33.5 RDW Std Deviation 46.6 H RDW Coeff of Annel 13.3 Plt Count 114 L MPV 12.4 H Immature Gran % (Auto) 0.6 Neut % (Auto) 76.9 Lymph % (Auto) 12.0 Bath % (Auto) 10.3 Eos % (Auto) 0.1 Baso % (Auto) 0.1 Immature Gran # (Auto) 0.05 H Neut # (Auto) 6.54 H Lymph # (Auto) 1.02 L Bath # (Auto) 0.88 H Eos # (Auto) 0.01 Baso # (Auto) 0.01 Toxic Vacuolation 1+ Dohle Bodies 1+ Giant Platelets 2+ Sodium 138 Potassium 4.7 Chloride 110 H Carbon Dioxide 24 Anion Gap 4.0 BUN 19 H Creatinine 0.93 Est Cr Clr Drug Dosing 48.0 Est GFR ( Amer) 68.2 Est GFR (Non-Af Amer) 58.9 BUN/Creatinine Ratio 20.7 H Glucose 91 Calcium 9.1 Magnesium 2.0 Medications Administered Current Inpatient Medications Acetaminophen (Tylenol) 650 mg PO Q4H PRN PRN Reason: Pain or Fever Stop: 04/27/19 21:20 Last Admin: 03/30/19 08:00 Dose: 650 mg Documented by: Albuterol (Ventolin Hfa) 2 puffs INH Q4 PRN PRN Reason: shortness of breath or wheezin Stop: 04/28/19 11:40 Albuterol (Duoneb) 3 ml INH Q6 PRN PRN Reason: Shortness Of Breath Or Wheezing Stop: 04/28/19 11:37 Amlodipine Besylate (Norvasc) 5 mg PO QAM [facility] Stop: 05/01/19 08:59 Anastrozole (Arimidex) 1 mg PO DAILY [facility] Stop: 04/28/19 08:59 Last Admin: 03/31/19 08:14 Dose: 1 mg Documented by: Apixaban (Eliquis) 2.5 mg PO BID [facility] Stop: 04/29/19 10:14 Last Admin: 03/31/19 08:14 Dose: 2.5 mg Documented by: Benzonatate (Tessalon Perle) 200 mg PO TID PRN PRN Reason: Cough Stop: 04/28/19 11:37 Bupropion HCl (Wellbutrin-Sr) 150 mg PO BID [facility] Stop: 04/28/19 08:59 Last Admin: 03/31/19 08:14 Dose: Not Given Documented by: Haloperidol Lactate (Haldol) 2 mg IM Q2H PRN PRN Reason: Agitation Stop: 04/30/19 01:06 Hydromorphone HCl (Dilaudid) 0.25 mg IV Q3H PRN PRN Reason: Pain Stop: 04/11/19 22:10 Promethazine HCl 12.5 mg/ (Sodium Chloride) 50.5 mls @ 202 mls/hr IV Q6H PRN PRN Reason: Nausea And Vomiting Stop: 04/27/19 22:10 Last Infusion: 03/30/19 11:33 Dose: Infused Documented by: Sodium Chloride (Nss 1000ml) 1,000 mls @ 60 mls/hr IV .[id number] ONE Stop: 03/31/19 17:49 Last Admin: 03/31/19 01:31 Dose: Not Given Documented by: Levothyroxine Sodium (Synthroid) 50 mcg PO DAILYBB [facility] Stop: 04/28/19 06:29 Last Admin: 03/31/19 05:39 Dose: Not Given Documented by: Metoprolol Tartrate (Lopressor) 50 mg PO BID [facility] Stop: 04/28/19 06:29 Last Admin: 03/31/19 08:14 Dose: 50 mg Documented by: Metoprolol Tartrate (Lopressor) 2.5 mg IV Q6 PRN PRN Reason: Tachycardia Stop: 04/28/19 11:59 Miscellaneous (Order Awaiting Action) 1 ea N/A QS [facility] Stop: 04/27/19 22:29 Last Admin: 03/31/19 08:14 Dose: Not Given Documented by: Nicotine Polacrilex (Nicorette 2mg) 1 piece MT Q1H PRN PRN Reason: smoking urge Stop: 04/27/19 22:01 Nitroglycerin (Nitrostat) 0.4 mg SL UD PRN PRN Reason: Chest Pain Stop: 04/27/19 21:20 Oxycodone HCl (Roxicodone Immediate Rel) 5 mg PO Q4H PRN PRN Reason: Pain Stop: 04/11/19 22:10 Phenazopyridine HCl (Pyridium) 100 mg PO TID PRN PRN Reason: Bladder pain Stop: 04/28/19 11:46 Last Admin: 03/29/19 13:18 Dose: 100 mg Documented by: Ranitidine HCl (Zantac) 150 mg PO BID [facility] Stop: 04/28/19 08:59 Last Admin: 03/31/19 08:14 Dose: 150 mg Documented by: Tamsulosin HCl (Flomax) 0.4 mg PO HS [facility] Stop: 04/28/19 20:59 Last Admin: 03/30/19 21:04 Dose: 0.4 mg Documented by:
[2019-03-31 15:28] VITALS: BP 150/82; TEMP 98.2; O2SAT 94
--- NOTE | 2019-03-31 15:54 | Discharge Summary ---
Date of Service March 31, 2019 Admission HPI Per Admitting Provider History obtained from patient and records. Medical history significant for hypertension, breast cancer left status post surgery radiation, uterine cancer status post surgery, hypothyroidism, chronic thrombocytopenia, ongoing tobacco abuse. Recent confinement February 2017 under Orthopedics service for elective kyphoplasty for T12 compression fracture. 5 days history of fatigue symptoms, poor appetite, left-sided abdominal discomfort. No chest pain, no S OB. Patient brought to [facility] this afternoon. Noted to be in rapid A. fib, cardiac rate 140s. SBP 90s RR 24 Patient given IV Lopressor at the ER. CT abdomen pelvis showed 6 mm proximal left ureteral calculus causing moderate left hydronephrosis Incidental finding of 5.5 cm collection left breast favoring seroma. Consider abscess in the right clinical setting. 03/28 [facility] labwork as follows : Hemoglobin 13.9 hematocrit 40 WBC 8 platelets 96 sodium 128 potassium 4.4 chloride 91 CO2 22 BUN 17 creatinine 1.2 glucose 108 UA WBC esterase positive, nitrite negative. Patient given IV Ceftriaxone at the ER. Patient transferred to [facility] for urologic services. 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 Admission Exam Per Admitting Provider Physical Exam Physical Exam: GENERAL: Slightly uncomfortable, lying on the right lateral decubitus position, no respiratory distress, obese SKIN: Normal color, warm HEENT: [place] palpebral conjunctivae, no ptosis, dry buccal mucosa NECK : Supple, no tenderness CHEST : Decreased breath sounds , no tenderness HEART : Tachycardic, irregular , no obvious murmurs ABDOMEN: Some distention, nontender EXTREMITIES : No LE swelling/tenderness, no other conspicuous deformities noted NEUROLOGIC : Coherent, no facial asymmetry, no other gross focality Principal Diagnosis Atrial fibrillation with rapid ventricular response Left ureteral stone Delirium Discharge Data Allergies Allergy/AdvReac Type Severity Reaction Status Date / Time adhesive Allergy Unknown SKIN Verified 03/04/17 09:58 IRRIATION WITH SOME TAPE No Known Drug Allergies Allergy Unknown NONE Verified 03/04/17 09:58 shellfish derived Allergy Unknown ABDOMINAL Verified 03/04/17 09:58 PAIN ciprofloxacin [From Cipro] AdvReac Intermediate delirium Verified 03/31/19 01:12 Consultations 03/28/19 22:11 Consult Cardiology Routine Consult Urology Routine Procedures Performed Operation Date: 03/29/19 10:00 Actual Procedures p Cystoscopy, Left Retrograde Pyelography, Left Ureteral Stent Insertion(Left) - Gerald Stiles MD CXR: Cardiomegaly with no acute cardiopulmonary abnormality. KUB: 1. No evidence of pathologic bowel dilatation 2. Left-sided double pigtail nephroureteral stent 3. The previously identified proximal left ureteral calculus is not visualized with certainty Ordered Studies 03/29/19 FL retrograde includes kub Routine Hospital Course (1) Atrial fibrillation with rapid ventricular response: Atrial fibrillation with RVR New onset Normal TSH Echo: EF 60 to 65%, mild MR, right and left ventricular systolic function is normal Continue Metoprolol 50 mg twice daily Lopressor IV PRN On IV heparin transition to Eliquis for anticoagulation Appreciate cardiology input Monitor electrolytes and replace as needed Left ureteral stone S/P left ureteral stent placement POD#0 UTI--ruled out Discontinue IV cefepime Blood, urine cultures: No growth to date Received IV fluids Appreciate urology input Continue flomax Needs follow up with Urology upon discharge KUB: Left-sided nephroureteral stent. The previously identified proximal left ureteral calculus is not visualized with certainty. Acute kidney injury Creatinine levels normalized with IV fluids Monitor renal function Delirium Vs Possible metabolic encephalopathy secondary to medications Reorient frequently Avoid Narcotics/sedative meds as able Ciprofloxacin discontinued Hypertension Slightly low on presentation stable Added amlodipine for better BP control H/O Breast cancer S/P surgery radiation on hormonal Rx Seroma not a new finding as per patient. Patient follows with [facility] Continue home Medications Hyponatremia Likely secondary to dehydration Resolved Received IV fluids Monitor sodium levels H/O Uterine cancer S/P surgery H/O Chronic thrombocytopenia Platelets drop likely due to IV heparin HIT screen negative IV heparin discontinued Platelet count slowly improving Hypothyroidism TSH within normal limits Continue levothyroxine hyperglycemia Hemoglobin A1c:5.3 Diabetes ruled out Ongoing tobacco abuse Counseled to quit smoking DVT Px: On Eliquis--low dose due to age Code Status Full Code Disposition Plan to discharge home when medically stable Total Time Total Time Spent Total Time Spent (In Minutes): 40 minutes Total Time Includes: Examination of the Patient, Discharge Planning, Medication Reconciliation, Communication With Other Providers and Other Discharge Plan Discharge Items Patient Disposition: Home - Self-Care Reason For Visit: NEW ONSET A-FIB, L UTHERAL KIDNEY STONE Discharge Diagnosis: Atrial fibrillation with rapid ventricular response Left ureteral stone Delirium Activity: Resume your previous activity Exercise/Sports: Gradually increase as tolerated Non-emergency contact: Primary Care Provider, Command And Control Officer and Urologist Call non-emergency contact if: you have any medication questions, your symptoms worsen, your pain is not controlled, your pain is worsening, your pain is unusual for you, your pain is concerning for you and you have a fever Follow-up/Referrals: Carson Aguilar MD [Primary Care Provider] - Diet: Heart Healthy Addtl Attending Provider Instructions: Follow up with your primary care physician Dr. Aguilar on April 06, 2019 at 4:20 PM Follow-up with your medical assisting program director Dr. Sandoval in 2 to 3 weeks as advised. Office will call you with appointment Follow-up with your urologist Dr. Gerald Stiles in 2 weeks. Please call for appointment Seek immediate medical attention if your symptoms reoccur or worsen Discontinued Medications: --Your naproxen is discontinued as you have started on a blood thinner--Eliquis as combination could cause increased bleeding --Your atenolol is discontinued --Avoid taking any NSAIDs--Advil, Motrin etc. as you are on a blood thinner New medications: Take amlodipine 5 mg daily l Take Metoprolol 50 mg twice a day Take Eliquis 2.5 mg twice a day Take Tamsulosin 0.4 mg daily until further recommendations by your urologist Take Phenazopyridine as needed for pain during urination Pending Studies at Discharge: No Stand-Alone Forms: [facility], Work/School Release (Inpt), Smoking Cessation Medications and DC Order Prescriptions: New amlodipine [Norvasc] 5 mg Tablet 5 mg PO QAM Qty: 30 RF: 1 tamsulosin 0.4 mg Capsule 0.4 mg PO HS Qty: 30 RF: 0 phenazopyridine [Pyridium] 100 mg Tablet 100 mg PO TID PRN (Reason: pain) Qty: 20 RF: 0 metoprolol tartrate 50 mg Tablet 50 mg PO BID 30 Days Qty: 60 RF: 1 Eliquis 2.5 mg Tablet 2.5 mg PO BID 30 Days Qty: 60 RF: 1 Continued anastrozole [Arimidex] 1 mg tablet 1 mg PO DAILY RF: 0 ipratropium-albuterol 0.5 mg-3 mg(2.5 mg base)/3 mL Solution For Nebulization 3 ml INHALATION Q6 PRN (Reason: Shortness Of Breath Or Wheezing) RF: 0 benzonatate [Tessalon Perles] 100 mg capsule 200 mg PO TID PRN (Reason: Cough) RF: 0 levothyroxine 50 mcg tablet 50 mcg PO DAILY RF: 0 ranitidine HCl [Zantac] 150 mg tablet 150 mg PO BID RF: 0 lorazepam [Ativan] 1 mg tablet 1 mg PO BID PRN (Reason: Anxiety) RF: 0 albuterol sulfate [ProAir HFA] 90 mcg/actuation Hfa Aerosol Inhaler 2 puff INHALATION Q4 PRN (Reason: Shortness Of Breath Or Wheezing) RF: 0 Arnuity Ellipta 100 mcg/actuation blister with device 1 inh INHALATION DAILY RF: 0 bupropion HCl (smoking deter) 150 mg tablet extended release 12 hr 150 mg PO BID RF: 0 Potassium Tab 99 mg PO DAILY RF: 0 Discontinued atenolol [Tenormin] 100 mg tablet 100 mg PO DAILY RF: 0 naproxen [Naprosyn] 500 mg tablet 500 mg PO Q12 PRN (Reason: Pain) RF: 0 Discharge Orders: Discharge Order (Routine); Ordered 03/31/19 Ordered By: Ronaldo De La Fuente/Other Patient Handouts: Amlodipine Besylate Oral tablet Admission Data Admit Date/Time: 03/28/19 21:22 Attending Provider: Ronaldo Henderson Admit Provider: Ezra Santizo Primary Care Provider: Carson Aguilar Other Providers: Darian Sandoval ; Gerald Stiles I. Other Interventions: Discharge Summary Assessment (RN) Last Done: 03/31/19 16:38 DC Date/Time DO NOT enter until pt leaves facility: 03/31/19 17:25
[2019-03-31 16:41] VITALS: PULSE 63
[2019-04-01] MEDS ORDERED: AMLODIPINE BESYLATE 5 MG TAB PO SCH (09:00)
== END 2019-03-31 17:25 | disposition home or self-care (01) | DRG 659 ==
LOC: SUATTDRO 21:23 → 2S 21:23